=== PATIENT | male | born 1935 | race Caucasian/White ===

== ENCOUNTER 2017-12-22 13:45 | Outpatient (CLI) | payer MEDICARE, OTHER ==
[2017-12-22] MEDS ORDERED: GADOBUTROL 7.5 MMOL/7.5 ML VIAL IVP ONE (17:19)
[2017-12-22] MEDS ORDERED: GADOBUTROL 7.5 MMOL/7.5 ML VIAL ONE (18:30)
--- NOTE | 2017-12-23 12:42 | MRI Report ---
EXAM: MR ABDOMEN WITH AND WITHOUT CONTRAST (MR PANCREAS AND MRCP) EXAM DATE: 12/22/2017 05:54 PM. CLINICAL HISTORY: Pancreatic cancer. History of prior pancreatic cancer with Whipple surgery. COMPARISON: None. TECHNIQUE: Multiplanar breath-hold T1, T2, and DWI sequences obtained through the pancreas and abdome n on an MR scanner. Dedicated MRCP sequences obtained through the biliary and pancreatic ducts. Imag es obtained before and after administration of 6 mL Gadavist intravenous contrast. Multiphase postcon trast sequences obtained through the pancreas. FINDINGS: Per MR technologist there are multiple scan restarts and repeats due to difficulty in cooperation wit h both movement and breathing. Therefore, the entire scan is limited in detail. Lung Bases: Included portions of the lung bases are clear. Heart size upper normal. Liver: Signal intensity of the liver is unremarkable. No hypervascular lesions identified. No other h epatic lesions are seen noting that some of the postcontrast images are somewhat limited due to motio n. Patent portal vein. No significant intrahepatic ductal dilatation. CBD: The common bile duct in its entirety is not optimally visualized although it does not appear dil ated and may measure between 4-5 mm. Gallbladder: Gallbladder is absent. Pancreas: Portions of the pancreas are absent in particular pancreatic head which would coincide with the patient's history of pancreatic surgery. The remaining portions of the body and tail of pancreas are atrophic. Pancreatic duct well visualized measures up to 2 mm. No peripancreatic edema. No disti nct evidence for peripancreatic adenopathy. Spleen: The spleen appears normal. Kidneys and Adrenals: Kidneys are of normal signal intensity. Along the anterior midpole is a right r enal 6 mm T2 hyperintense and T1 hypointense lesion and also along the upper pole measuring 11 mm. No hydronephrosis. Adrenal glands appear normal. Bowel: Stomach is mildly distended and unremarkable. Postsurgical changes are seen involving the duod enum and distal stomach. Small bowel is unremarkable. The ascending colon is present extending medial ly overlying the anterior aspect of the IVC towards the right upper quadrant. Small to moderate volum e of stool is seen in the colon. No enlarged retroperitoneal or mesenteric lymph nodes. No upper abdo ankita enlarged lymph nodes are identified. Retroperitoneum: Abdominal aorta and IVC are normal in caliber. SMA, celiac and FELISA are patent. Renal arteries are patent. No aneurysm. Degenerative change in lower thoracic and lumbar spine. Thoracolumbar scoliosis. Calle catheter is present in urinary bladder which is mildly distended. IMPRESSION: 1. Detail limited due to motion and breathing artifact. 2. Postsurgical changes as per provided clinical history from Whipple surgery. 2. No hepatic lesions. 3. No evidence for upper abdominal, peripancreatic or gastrohepatic adenopathy. 4. Atrophic body and tail of the pancreas. No peripancreatic fluid collections. No peripancreatic sof t tissue nodules. 5. Right renal cysts. 6. Mildly distended urinary bladder containing a Calle catheter. [facility] Referring Provider Line: [phone] SITE ID: [id number]
== END 2017-12-22 13:46 | disposition home or self-care (01) ==
LOC: DI 13:45
PROVIDERS: ATTEND Internal Medicine Hematology & Oncology
DX: C25.9 Malignant neoplasm of pancreas, unspecified (principal); Q61.02 Congenital multiple renal cysts; N32.89 Other specified disorders of bladder
CPT/HCPCS: 74183

== ENCOUNTER 2017-12-27 09:53 | Emergency (ER) | payer MEDICARE, OTHER ==
[2017-12-27 10:14] VITALS: BP 147/54
--- NOTE | 2017-12-27 10:50 | ED Physician Documentation ---
History of Present Illness - Stated complaint Stated Complaint: CATH REMOVAL - Chief complaint Chief Complaint: General - Additonal information Additional information: hx from pt 82 male by his report had a cath placed for UTI and enlarged prostate about a week ago was seen in follow up Tuesday but the urologist did not want the catheter removed and he was supposed to go in Tuesday for removal but had other appts to attend then was supposed to go in today for removal but he was up all night with urine leaking around the catheter, urinary spasms and then diarrhea so he finally fell asleep about 4 and slept though his appt so come to ED for removal Review of Systems Constitutional: denies: Fever, Chills : reports: Dysuria PD PAST MEDICAL HISTORY - Past Medical History Cardiovascular: Hypertension Respiratory: None Neuro: None Endocrine/Autoimmune: None GI: C.difficile, Diverticulitis, Ulcerative colitis : Other HEENT: Chronic hearing loss Psych: Depression, Anxiety Musculoskeletal: Osteoarthritis Derm: None - Present Medications Home Medications: Ambulatory Orders Medication Instructions Recorded Confirmed Aspirin [Adult Low Dose Aspirin EC] 162 mg PO DAILY 12/05/17 12/27/17 Cholestyramine [Questran] 4 gm PO DAILY PRN 12/05/17 12/27/17 Finasteride [Proscar] 5 mg PO DAILY 12/05/17 12/27/17 Lactobacillus Rhamnosus GG 1 cap PO DAILY 12/05/17 12/27/17 [Culturelle] Lipase/Protease/Amylase [Creon Dr 1 cap PO TIDWM 12/05/17 12/27/17 24,000 Units Capsule] Lisinopril 15 mg PO DAILY 12/05/17 12/27/17 Magnesium 300 mg PO DAILY 12/05/17 12/27/17 Meclizine HCl 25 mg PO BID PRN 12/05/17 12/27/17 Mesalamine [Delzicol] 800 mg PO BID 12/05/17 12/27/17 Multivitamin [Multivitamins] 1 cap PO DAILY 12/05/17 12/27/17 [place]-3/Dha/Epa/Fish Oil [[place] 3 1 cap PO DAILY 12/05/17 12/27/17 500 Softgel] Pantoprazole [Protonix] 40 mg PO QDAC 12/05/17 12/27/17 Tamsulosin [Flomax] 0.4 mg PO DAILY 12/05/17 12/27/17 Trazodone HCl 25 - 50 mg PO QPM 12/05/17 12/27/17 Capecitabine [Xeloda] 1,500 mg PO BID 12/27/17 12/27/17 Loperamide [Imodium] 2 mg PO QID PRN 12/27/17 12/27/17 Oxybutynin [Ditropan] 5 mg PO TID PRN 12/27/17 12/27/17 Prochlorperazine [Compazine] 5 mg PO Q6H PRN 12/27/17 12/27/17 Vitamin B Complex 1 each PO DAILY 12/27/17 12/27/17 - Allergies Allergies/Adverse Reactions: Allergies Allergy/AdvReac Type Severity Reaction Status Date / Time ondansetron Allergy Unknown Verified 12/27/17 10:02 [From Zofran (as hydrochloride)] PD ED PE NORMAL - Vitals Vital signs reviewed: Yes - Cardiac Cardiac: RRR - Respiratory Respiratory: No respiratory distress, Clear bilaterally - Abdomen Abdomen: Soft, Non tender - Free text exam Free text exam: clear dark suarez urine in bag Results - Vitals Vitals: Vital Signs - 24 hr 12/27/17 09:55 Temperature 36.7 C Heart Rate 69 Respiratory 17 Rate Blood Pressure 147/54 H O2 Saturation 99 Oxygen O2 Source Room air PD MEDICAL DECISION MAKING - ED course ED course: mccain removed, pt able to void, post void scan <40 Departure - Departure Disposition: 01 Home, Self Care Clinical Impression: Encounter for Mccain catheter removal Condition: Good Comments: If you have more diarrhea you should collect a sample and have your PMD order a test to rule of c-diff which you have had before
== END 2017-12-27 11:51 | disposition home or self-care (01) ==
LOC: ED 09:53
DX: Z46.89 Encounter for fitting and adjustment of other specified devices (principal); I10 Essential (primary) hypertension; N40.0 Benign prostatic hyperplasia without lower urinary tract symptoms; M19.90 Unspecified osteoarthritis, unspecified site; Z87.19 Personal history of other diseases of the digestive system; Z79.82 Long term (current) use of aspirin
CPT/HCPCS: 51798; 99282

== ENCOUNTER 2018-01-02 09:42 | Emergency (ER) | payer MEDICARE, OTHER ==
--- NOTE | 2018-01-02 10:35 | ED Physician Documentation ---
History of Present Illness - Stated complaint Stated Complaint: ABD PX/DIARRHEA - Chief complaint Chief Complaint: Abd Pain - Treatment prior to arrival Treatment prior to arrival: hx from pt 82 male being txed for pancreatic cancer had C diff twice recent;y then he had UTI witg retention, had mccain placved i saw him 12/27 for mccain removal then seen 12/31 at [facility] for abd pain and had an extensive work up and was dced with keflex for UTI on the way home he at [facility] and after that he developed diarrhea again so his oncologist sent him to the ER to have a c diff sample collected pt states his ab pain is better no fever NV has not started the keflex yet Review of Systems Constitutional: denies: Fever GI: reports: Diarrhea (green - no blood). denies: Abdominal Pain, Nausea, Vomiting Endocrine: denies: Easy bruising / bleeding Immunocompromised: denies: Immunocompromised PD PAST MEDICAL HISTORY - Past Medical History Past Medical History: Yes Cardiovascular: Hypertension Respiratory: None Neuro: None Endocrine/Autoimmune: None GI: C.difficile, Diverticulitis, Ulcerative colitis : Other HEENT: Chronic hearing loss Psych: Depression, Anxiety Musculoskeletal: Osteoarthritis Derm: None - Past Surgical History Past Surgical History: Yes - Present Medications Home Medications: Ambulatory Orders Medication Instructions Recorded Confirmed Aspirin [Adult Low Dose Aspirin EC] 162 mg PO DAILY 12/05/17 01/02/18 Finasteride [Proscar] 5 mg PO DAILY 12/05/17 01/02/18 Lipase/Protease/Amylase [[place] 1 cap PO TIDWM 12/05/17 01/02/18 24,000 Units Capsule] Lisinopril 15 mg PO DAILY 12/05/17 01/02/18 Magnesium 300 mg PO DAILY 12/05/17 01/02/18 Meclizine HCl 25 mg PO BID PRN 12/05/17 01/02/18 Mesalamine [Delzicol] 800 mg PO BID 12/05/17 01/02/18 Multivitamin [Multivitamins] 1 cap PO DAILY 12/05/17 01/02/18 [place]-3/Dha/Epa/Fish Oil [[place] 3 1 cap PO DAILY 12/05/17 01/02/18 500 Softgel] Pantoprazole [Protonix] 40 mg PO QDAC 12/05/17 01/02/18 Tamsulosin [Flomax] 0.4 mg PO DAILY 12/05/17 01/02/18 Trazodone HCl 25 - 50 mg PO QPM 12/05/17 01/02/18 Loperamide [Imodium] 2 mg PO QID PRN 12/27/17 01/02/18 Megestrol Acetate 1 tbs PO BID 12/27/17 01/02/18 Vitamin B Complex 1 each PO DAILY 12/27/17 01/02/18 - Allergies Allergies/Adverse Reactions: Allergies Allergy/AdvReac Type Severity Reaction Status Date / Time ondansetron Allergy Unknown Verified 12/27/17 10:02 [From Zofran (as hydrochloride)] - Social History Does the pt smoke?: No Smoking Status: Never smoker Does the pt drink ETOH?: No Does the pt have substance abuse?: No - Immunizations Immunizations are current?: Yes PD ED PE NORMAL - Vitals Vital signs reviewed: Yes - General General: Other (thin) - Cardiac Cardiac: RRR - Respiratory Respiratory: No respiratory distress, Clear bilaterally - Abdomen Abdomen: Non tender - Derm Derm: Normal color - Neuro Neuro: Alert and oriented X 3 Results - Vitals Vitals: Vital Signs - 24 hr 01/02/18 01/02/18 09:48 12:18 Temperature 36.9 C 36.7 C Heart Rate 65 89 Respiratory 16 20 Rate Blood Pressure 143/67 H 146/69 H O2 Saturation 100 100 Oxygen O2 Source Room air - Labs Labs: Microbiology 01/02/18 10:30 Clostridium difficile (PCR) - Final Stool PD MEDICAL DECISION MAKING - ED course ED course: pt sent to ER to have a stool sample collected for c diff - long wait for lab results - 4 hr later c diff result is neg - pt with benign abd exam - already had extensive work up at [facility] 2 days ago - will dc and advise to take ab for UTI as rx by Prov Departure - Departure Disposition: Home, Self Care Clinical Impression: Diarrhea Qualifiers: Diarrhea type: unspecified type Qualified Code(s): R19.7 - Diarrhea, unspecified Condition: Good Follow-Up: Jese Armas MD [Primary Care Provider] - Surendra Fam MD [Physician No Access] - Comments: The C-diff test is negative today Continue the antibitoics as prescribed for the UTI And continue your probiotics. Follow up with your oncologist and/or PMD as needed
[2018-01-02 14:35] VITALS: BP 155/94
== END 2018-01-02 14:45 | disposition home or self-care (01) ==
LOC: ED 09:42
DX: R19.7 Diarrhea, unspecified (principal); C25.9 Malignant neoplasm of pancreas, unspecified; I10 Essential (primary) hypertension; Z79.82 Long term (current) use of aspirin
CPT/HCPCS: 87493; 99283

== ENCOUNTER 2018-01-17 13:14 | Outpatient (CLI) | payer MEDICARE, OTHER ==
--- NOTE | 2018-01-17 19:28 | CONSULTATION NOTE ---
Palliative Care Consultation - Referral Referring Provider: Dr. Surendra Fam Time of Visit: [id number] Referral setting: [facility] [place] Referral Reason: Pancreatic Cancer - Information Sources Records reviewed: Previous records reviewed History/Review of Systems obtained from: Patient Exam limitations: No limitations - History of Present Illness Brief History of Present Illness: This is an 82-year-old gentleman who was diagnosed with stage II (T3N0) pancreatic cancer of the head in December 2016. He did undergo a Whipple on 2016 at [facility], unfortunately had positive perineural invasion needing adjuvant chemotherapy. He did receive Xeloda and June 2017 with last dose 09/2017 with fairly severe toxicities. In the course of this he developed severe C. difficile, needing vancomycin two rounds, this added to his severe and rapid weight loss. He also had urinary retention secondary to BPH, with a Mccain catheter and recurrent UTIs. He has had this removed, reports he is doing okay at this time, no further retention symptoms. His most pressing symptom today, is his abdominal pain, he has had significant weight loss reports he weighs 130, at one point he was 220 at baseline. He does admit most likely he gets less than 1000 eladia a day, which is attributed to his stomach pain, and early satiety. He is quite frustrated understanding he needs to see the GI physician, and has been waiting 2 weeks for this appointment. He is having soft formed stools, his pain is not abdominal low cramping pain but upper epigastric pain between the sternal notch and the umbilicus. It is tender to touch, he has tries multiple different medications including Gaviscon, Pepto-Bismol, and antacid tablets. He does report he gets some relief with the PPI in the morning , though this only lasts for a few hours. He reports he is continued to have functional decline, as well as poor activity tolerance, and does appear somewhat frustrated and depressed. He does understand the seriousness of his illness and is awaiting clarification if a has progressive disease, and presents with high symptom burden.His CA 199 is elevated at 121, though his MRI is negative for metastasis. Medical/Surgical History - Past Medical History Cardiovascular: reports: Hypertension Respiratory: reports: None Neuro: reports: None Endocrine/Autoimmune: reports: None GI: reports: C.difficile, Diverticulitis, Ulcerative colitis : reports: Benign prostate hypertrophy, Other (mccain catheter removed;) HEENT: reports: Chronic hearing loss Psych: reports: Depression, Anxiety Musculoskeletal: reports: Osteoarthritis Derm: reports: None MRSA Hx?: No - Substance History Use: Uses substance without health or social issues: NONE Social History - Living Situation Living arrangement: At home Living Situation: With spouse/s.o. (He lives with his chris, they have been 37 years. They have a son in [place] and a son in [place]. He came to [facility] in [place], worked in the [employer]. He is retired in .) Family History - Family History Family History: Mother: , CVA/TIA, Father: , Cancer (;sister of colon cancer; another sister had brain c), Sister: Medications/Allergies - Medications Home Medications: Ambulatory Orders Medication Instructions Recorded Confirmed Aspirin [Adult Low Dose Aspirin EC] 100 mg PO DAILY 12/05/17 01/19/18 Finasteride [Proscar] 5 mg PO DAILY 12/05/17 01/19/18 Lipase/Protease/Amylase [Creon Dr 1 cap PO TIDWM 12/05/17 01/19/18 24,000 Units Capsule] Lisinopril 15 mg PO BID 12/05/17 01/19/18 Magnesium 250 mg PO DAILY 12/05/17 01/19/18 Mesalamine [Delzicol] 800 mg PO BID 12/05/17 01/19/18 Multivitamin [Multivitamins] 1 cap PO DAILY 12/05/17 01/19/18 [place]-3/Dha/Epa/Fish Oil [[place] 3 1 cap PO DAILY 12/05/17 01/19/18 500 Softgel] Pantoprazole [Protonix] 40 mg PO QDAC 12/05/17 01/19/18 Tamsulosin [Flomax] 0.4 mg PO DAILY 12/05/17 01/19/18 Loperamide [Imodium] 2 mg PO QID PRN 12/27/17 01/19/18 Megestrol Acetate 1 tbs PO BID 12/27/17 01/19/18 Lactobacillus Rhamnosus GG 1 cap PO DAILY 01/19/18 01/19/18 [Culturelle] Saccharomyces Boulardii [Florastor] 250 mg PO BID 01/19/18 01/19/18 - Allergies Allergies/Adverse Reactions: Allergies Allergy/AdvReac Type Severity Reaction Status Date / Time ondansetron Allergy Unknown Verified 12/27/17 10:02 [From Zofran (as hydrochloride)] Review of Systems - Constitutional Constitutional: reports: Fatigue, Weakness, Weight loss (130). denies: Fever, Chills - Ears, Nose & Throat Ears, Nose & Throat: reports: Hearing loss, Dry mouth - Cardiovascular Cardiovascular: reports: Decr. exercise tolerance. denies: Chest pain, Edema - Respiratory Respiratory: reports: SOB with exertion - Gastrointestinal Gastrointestinal: reports: Nausea, Reflux/heartburn, Poor appetite, Early satiety. denies: Diarrhea - Genitourinary Genitourinary: reports: Frequency - Musculoskeletal Musculoskeletal: reports: Muscle aches, Stiffness, Muscle weakness, Assistive devices (using walker) - Integumentary Integumentary: reports: Other (pressure sore) - Neurological Neurological: reports: General weakness - Psychiatric Psychiatric: reports: Depression, Anxiety - Endocrine Endocrine: reports: Intolerance to cold - Hematologic/Lymphatic Hematologic/Lymphatic: reports: Recurrent infections (recent treatment for infection) - All Other Systems All Other Systems: reports: Reviewed and negative Physical Exam - Vital Signs Pulse Rate: 53 Respiratory Rate: 18 O2 Saturation: 99 (ra @rest) Blood Pressure: 129/78 - Physical Exam General Appearance: positive: Mild distress Eyes Bilateral: positive: Normal inspection ENT: positive: Dry mucous membranes Neck: positive: Trachea midline, Stiff neck Cardiovascular: positive: Regular rate & rhythm Respiratory: positive: Breath sounds nml Abdomen: positive: Soft, Nml bowel sounds, Tenderness (mostly located above umbilicus on palpation) Skin: positive: Pressure wound (Stage II decub 0.5 cm on coccyx; reddened area over coccyx/sacrum) Extremities: positive: No pedal edema, Other (difficulty getting sitting to standing; amb with walker; shuffled walk) Neurologic/Psychiatric: positive: Oriented x3, Weakness, Depressed mood/affect Comments/Other: Patient with multiple layers of sweaters and coat on, appears quite thin and cachectic. Palliative Care - POLST Patient has POLST: Yes POLST Status: DNR (Patient reports has filled out JULIANN ST, and has done advanced directives. Unfortunately these are not on file that I can locate.), Selective Treatment Pain: Pain worsening, Location ("stomach pain" located between sternal notch and umbilicus. Does get severe enough needs morphine, 1/2 tab of 15 mg tab with refief when gavison etc. not effective.) Tiredness/Fatigue: Severe (7-10) Drowsiness/Sedation: Mild (1-3) Nausea: Mild (1-3) (Patient distressed with the word nausea, did discuss given patient's description would confirm he does have nausea though he does not feel like he is going to throw up he has a low-grade discomfort and feeling of ill health fairly consistently.) Depression: Moderate (4-6) Anxiety: Moderate (4-6) Dyspnea: Mild (1-3) Anorexia: Severe (7-10), Weight loss Sleep: Variable sleep pattern Constipation: No Feelings of wellbeing/Perceived Quality of Life: Poor, Worsening Performance Status: Patient has had ongoing functional decline, reports increased weakness. Has starting use a walker this last week, has not had any falls but does feel his balance is off. He is able to remain mostly independent, though his does assist with some ADLs. I would put him at a PPS of 50% - Palliative Care Discussion: Fairly lengthy discussion and trying to tease out patient's goals. Patient does recognize the seriousness of his illness, is concerned as far as progressive disease. He is quite clear at this point in time he would not except for the chemotherapy and/or radiation. He reports he has lived a good life, he does not want to extend his suffering, he feels he is right with the Lord. Patient does report he has a JULIANN ST and his advanced directives in place. Am unable to locate these at this point in time. In contrast to this he is hopeful that he is able to resolve this severe abdominal pain and discomfort, he is quite frustrated with the system overall and multiple delays and accessing care and information. He has had multiple emergency visits, regarding acute symptoms. He is hoping the GI doc will be able to assist him with his most prominent symptom which is concerning for his GI pain, and bowel health.He would like to focus on quality of life and improving his overall health if he does not have progressive disease.He is accepting of palliative care support that end-of-life would like to have a at home, his is supportive of this choice. She herself has taken care of her mom at end of life. Impression and Recommendations - Palliative Care Impression: This is an 82-year-old gentleman who presents with high symptom burden, GI distress, and functional decline. He does have pancreatic stage II cancer, with perineal invasion. Awaiting follow-up with GI specialist to address severe abdominal pain, has had significant weight loss, fatigue, presents with depressive symptoms, and severe frustration. Palliative care to provide support with the focus on quality of life, and continue to address goals of care. Recommendations/Counseling Done: 1. Anorexia. Patient has initiated Megace, he does feel some improvement, though he is getting less and his caloric needs. He has tried multiple different strategies, his most limiting factor is his abdominal pain. Reviewed and reinforced strategies provided by multiple clinical providers as well as dietitian, did encourage him to increase his Ensure intake as he is not able to meet his caloric needs. We did discuss in the context of fluids and his high risk for dehydration, best to focus on calorie laden fluids. 2. Hypertension. Patient is taking lisinopril 5 mg 3 tabs twice daily. He does titrate this somewhat accordingly. We did discuss this more important for him to be on the higher side, he is at high risk for falls, and with dehydration need to focus on keeping his blood pressure closer to the 120-140 range. Patient did acknowledge understanding. 3. GI pain. Does sound suspicious as far as possible ulcer, and or disease. Did provide prescription MS 15 mg immediate release with instruction to use this more frequently given the level and severity of his pain. He has found this effective. Will follow-up if patient is not seeing GI in the next couple weeks, may benefit from a trial of doubled PPI and Carafate. Will initiate after GI appointment set. 4. Depressive symptoms. Patient most likely would benefit from antidepressant , though will await resolution of his frustration with GI follow-up. Did normalize his feelings of grief and loss through counseling. 5. Advanced care planning. Patient quite clear on his goals at this point in time if had recurrent or progressive disease would not pursue further treatment , this decision is made in the context not only of his own experiences but experiences with family members. Counseling regarding the continuum of care including the role of palliative care and hospice. Will follow up and confirm his advanced directives are available in the system with next visit. Time Spent: Time spent 75 minutes with good 50% of this done in counseling eliciting goals of care reviewing symptom management and anticipatory guidance
== END 2018-01-17 13:15 | disposition home or self-care (01) ==
LOC: PC 13:14
PROVIDERS: ATTEND Nurse Practitioner Adult Health
DX: Z51.5 Encounter for palliative care (principal); R63.0 Anorexia; I10 Essential (primary) hypertension; R10.9 Unspecified abdominal pain; F32.9 Major depressive disorder, single episode, unspecified; C25.0 Malignant neoplasm of head of pancreas; F41.9 Anxiety disorder, unspecified; Z79.82 Long term (current) use of aspirin; M62.81 Muscle weakness (generalized); Z66 Do not resuscitate
CPT/HCPCS: 99205

== ENCOUNTER 2018-01-21 15:54 | Emergency (ER) | payer MEDICARE, OTHER ==
[2018-01-21 16:33] LABS: BILIRUBIN,URINE NEGATIVE (NEGATIVE); GLUCOSE, URINE (UA) NEGATIVE (NEGATIVE); KETONES,URINE (UA) NEGATIVE (NEGATIVE); LEUKOCYTE ESTERASE, URINE LARGE (NEGATIVE); NITRITE,URINE NEGATIVE (NEGATIVE); OCCULT BLOOD,URINE TRACE-INTA (NEGATIVE); PROTEIN,URINE NEGATIVE (NEGATIVE); UROBILINOGEN,URINE 0.2 (NORMAL) E.U./dL (NORMAL)
[2018-01-21 16:34] LABS: CLARITY,URINE CLOUDY (CLEAR)
[2018-01-21 16:48] LABS: BACTERIA,URINE Few /HPF (None Seen); CRYSTALS,URINE 3-5 Calcium Oxalate /LPF; RBC,URINE TNTC /HPF (0-5); SQUAMOUS EPITHELIAL CELL,UR NONE SEEN (<= Few)
[2018-01-21] MEDS ORDERED: cefTRIAXone 1 GM VIAL IM STA (17:11)
[2018-01-21] MEDS ORDERED: LIDOCAINE 1% 2 ML VIAL SUBQ ONE (17:11)
--- NOTE | 2018-01-21 17:14 | ED Physician Documentation ---
PD HPI MALE - Stated complaint Stated Complaint: MALE - Chief complaint Chief Complaint: Abd Pain - History obtained from History obtained from: Patient - History of Present Illness Timing - onset: How many days ago (2) Timing - duration: Days (2) Timing - details: Gradual onset Pain level max: 0 Pain level now: 0 Associated symptoms: Dysuria, Other (states foreskin is swollen.). No: Hematuria, Discharge, Testiclar pain, Scrotal swelling, Abdominal pain Similar symptoms before: Diagnosis (UTI) Recently seen: Not recently seen - Additional information Additional information: States similar to prior UTIs Review of Systems Constitutional: denies: Fever, Chills Respiratory: denies: Cough GI: denies: Vomiting, Diarrhea, Hematemesis : reports: Dysuria, Frequency, Hesitancy Skin: denies: Rash PD PAST MEDICAL HISTORY - Past Medical History Cardiovascular: Hypertension Respiratory: None Neuro: None Endocrine/Autoimmune: None GI: C.difficile, Diverticulitis, Ulcerative colitis : Benign prostate hypertrophy, Other (mccain catheter removed;) HEENT: Chronic hearing loss Psych: Depression, Anxiety Musculoskeletal: Osteoarthritis Derm: None - Past Surgical History Past Surgical History: Yes - Present Medications Home Medications: Ambulatory Orders Medication Instructions Recorded Confirmed Aspirin [Adult Low Dose Aspirin EC] 100 mg PO DAILY 12/05/17 01/19/18 Finasteride [Proscar] 5 mg PO DAILY 12/05/17 01/19/18 Lipase/Protease/Amylase [Creon Dr 1 cap PO TIDWM 12/05/17 01/19/18 24,000 Units Capsule] Lisinopril 15 mg PO BID 12/05/17 01/19/18 Magnesium 250 mg PO DAILY 12/05/17 01/19/18 Mesalamine [Delzicol] 800 mg PO BID 12/05/17 01/19/18 Multivitamin [Multivitamins] 1 cap PO DAILY 12/05/17 01/19/18 [place]-3/Dha/Epa/Fish Oil [[place] 3 1 cap PO DAILY 12/05/17 01/19/18 500 Softgel] Pantoprazole [Protonix] 40 mg PO QDAC 12/05/17 01/19/18 Tamsulosin [Flomax] 0.4 mg PO DAILY 12/05/17 01/19/18 Loperamide [Imodium] 2 mg PO QID PRN 12/27/17 01/19/18 Megestrol Acetate 1 tbs PO BID 12/27/17 01/19/18 Lactobacillus Rhamnosus GG 1 cap PO DAILY 01/19/18 01/19/18 [Culturelle] Saccharomyces Boulardii [Florastor] 250 mg PO BID 01/19/18 01/19/18 Cephalexin [Keflex] 500 mg PO Q6H #28 capsule 01/21/18 - Allergies Allergies/Adverse Reactions: Allergies Allergy/AdvReac Type Severity Reaction Status Date / Time ondansetron Allergy Unknown Verified 12/27/17 10:02 [From Zofran (as hydrochloride)] - Social History Does the pt smoke?: No Smoking Status: Never smoker Does the pt drink ETOH?: No Does the pt have substance abuse?: No - Immunizations Immunizations are current?: Yes - POLST Patient has POLST: Yes PD ED PE NORMAL - Vitals Vital signs reviewed: Yes - General General: Alert and oriented X 3, No acute distress - HEENT HEENT: Moist mucous membranes - Cardiac Cardiac: RRR - Respiratory Respiratory: No respiratory distress, Clear bilaterally - Abdomen Abdomen: Soft, Non tender, Non distended - Male Male : Other (Normal external genital exam, foreskin retracts and replaces easily. No infection) - Back Back: No CVA TTP - Derm Derm: Warm and dry - Neuro Neuro: Alert and oriented X 3 Results - Vitals Vitals: Vital Signs - 24 hr 01/21/18 01/21/18 16:07 18:05 Temperature 37.6 C H 37.1 C Heart Rate 59 L 59 L Respiratory 18 16 Rate Blood Pressure 144/65 H 113/58 L O2 Saturation 99 100 Oxygen O2 Source Room air - Labs Labs: Laboratory Tests 01/21/18 16:15 Urine Color YELLOW Urine Clarity CLOUDY Urine pH 6.0 Ur Specific [place] 1.015 Urine Protein NEGATIVE Urine Glucose (UA) NEGATIVE Urine Ketones NEGATIVE Urine Occult Blood TRACE-INTA Urine Nitrite NEGATIVE Urine Bilirubin NEGATIVE Urine Urobilinogen 0.2 (NORMAL) Ur Leukocyte Esterase LARGE H Urine RBC TNTC H Urine WBC >25 H Ur Squamous Epith Cells NONE SEEN Urine Crystals 3-5 Calcium Oxalate Urine Bacteria Few Ur Microscopic Review INDICATED Urine Culture Comments INDICATED PD MEDICAL DECISION MAKING - ED course Complexity details: reviewed results, re-evaluated patient, considered differential, d/w patient, d/w family ED course: Patient is an 82-year-old male with what appears to be a UTI. Given Rocephin and will place on antibiotics for home. He is well-appearing, nontoxic. Afebrile. No evidence of pyelonephritis or sepsis. Patient counseled regarding signs and symptoms for which I believe and urgent re-evaluation would be necessary. Patient with good understanding of and agreement to plan and is comfortable going home at this time This document was made in part using voice recognition software. While efforts are made to proofread this document, sound alike and grammatical errors may occur. Departure - Departure Disposition: Home, Self Care Clinical Impression: UTI (urinary tract infection) Qualifiers: Urinary tract infection type: acute cystitis Hematuria presence: without hematuria Qualified Code(s): N30.00 - Acute cystitis without hematuria Condition: Good Instructions: ED UTI Cystitis Male Follow-Up: your,doctor in 1 week [Other] Prescriptions: Cephalexin [Keflex] 500 mg PO Q6H #28 capsule Comments: Return if you worsen. Take all antibiotics until gone. Discharge Date/Time: 01/21/18 18:05
[2018-01-21 18:09] VITALS: BP 113/58
== END 2018-01-21 18:05 | disposition home or self-care (01) ==
LOC: ED 15:54
DX: N30.00 Acute cystitis without hematuria (principal); I10 Essential (primary) hypertension; N40.0 Benign prostatic hyperplasia without lower urinary tract symptoms; Z79.82 Long term (current) use of aspirin
CPT/HCPCS: 81001; 81003; 87077; 87086; 96372; 99283

== ENCOUNTER 2018-01-23 15:32 | Emergency (ER) | payer MEDICARE, OTHER ==
--- NOTE | 2018-01-23 18:35 | ED Physician Documentation ---
PD HPI NVD - Stated complaint Stated Complaint: DIARRHEA - Chief complaint Chief Complaint: Abd Pain - History obtained from History obtained from: Patient - History of Present Illness Timing - onset: How many days ago (2) Timing - duration: Days (2) Timing - details: Abrupt onset, Still present Associated symptoms: Abdominal pain (cramping intermittently). No: Fever Contributing factors: Recent antibiotics (started Keflex for likely UTI 2 days ago. Had onset of severe diarrhea soon after that.). No: Sick contact, Bad food , Travel Improved by: No: Eating Worsened by: Eating Similar symptoms before: Diagnosis (c.diff.) Recently seen: Emergency Dept (2 days ago for fatigue and Dx with UTi.) Review of Systems Constitutional: reports: Chills, Myalgias. denies: Fever Nose: denies: Rhinorrhea / runny nose, Congestion Throat: denies: Dental pain / toothache, Sore throat Cardiac: denies: Chest pain / pressure Respiratory: denies: Dyspnea, Cough GI: reports: Abdominal Pain. denies: Nausea, Diarrhea : denies: Dysuria, Frequency PD PAST MEDICAL HISTORY - Past Medical History Cardiovascular: Hypertension Respiratory: None Neuro: None Endocrine/Autoimmune: None GI: C.difficile, Diverticulitis, Ulcerative colitis : Benign prostate hypertrophy, Other (mccain catheter removed;) HEENT: Chronic hearing loss Psych: Depression, Anxiety Musculoskeletal: Osteoarthritis Derm: None - Past Surgical History Past Surgical History: Yes - Present Medications Home Medications: Ambulatory Orders Medication Instructions Recorded Confirmed Aspirin [Adult Low Dose Aspirin EC] 100 mg PO DAILY 12/05/17 01/23/18 Finasteride [Proscar] 5 mg PO DAILY 12/05/17 01/23/18 Lipase/Protease/Amylase [Creon Dr 1 cap PO TIDWM 12/05/17 01/23/18 24,000 Units Capsule] Lisinopril 15 mg PO BID 12/05/17 01/23/18 Magnesium 250 mg PO DAILY 12/05/17 01/23/18 Mesalamine [Delzicol] 800 mg PO BID 12/05/17 01/23/18 Multivitamin [Multivitamins] 1 cap PO DAILY 12/05/17 01/23/18 [place]-3/Dha/Epa/Fish Oil [[place] 3 1 cap PO DAILY 12/05/17 01/23/18 500 Softgel] Pantoprazole [Protonix] 40 mg PO QDAC 12/05/17 01/23/18 Tamsulosin [Flomax] 0.4 mg PO DAILY 12/05/17 01/23/18 Loperamide [Imodium] 2 mg PO QID PRN 12/27/17 01/23/18 Megestrol Acetate 1 tbs PO BID 12/27/17 01/23/18 Lactobacillus Rhamnosus GG 1 cap PO DAILY 01/19/18 01/23/18 [Culturelle] Saccharomyces Boulardii [Florastor] 250 mg PO BID 01/19/18 01/23/18 Morphine ER [Ms Contin] 15 mg PO Q12H 01/23/18 01/23/18 Nitrofurantoin Monohyd/M-Cryst 100 mg PO BID #14 capsule 01/23/18 [Macrobid 100 mg Capsule] - Allergies Allergies/Adverse Reactions: Allergies Allergy/AdvReac Type Severity Reaction Status Date / Time cephalexin [From Keflex] Allergy Cramps Verified 01/23/18 16:02 ondansetron Allergy Unknown Verified 12/27/17 10:02 [From Zofran (as hydrochloride)] - Social History Does the pt smoke?: No Smoking Status: Never smoker Does the pt drink ETOH?: No Does the pt have substance abuse?: No - Immunizations Immunizations are current?: Yes - POLST Patient has POLST: Yes PD ED PE NORMAL - Vitals Vital signs reviewed: Yes - General General: Alert and oriented X 3, No acute distress, Well developed/nourished - HEENT HEENT: Moist mucous membranes, Pharynx benign - Neck Neck: Supple, no meningeal sign, No adenopathy - Cardiac Cardiac: RRR, No murmur - Respiratory Respiratory: No respiratory distress, Clear bilaterally - Abdomen Abdomen: Normal bowel sounds, Soft, Non tender, Non distended, No organomegaly - Back Back: No CVA TTP - Derm Derm: Normal color, Warm and dry Results - Vitals Vitals: Oxygen O2 Source Room air - Labs Labs: Microbiology 01/23/18 18:48 Urine Culture - Final Urine,Clean Catch No growth Laboratory Tests 01/23/18 18:48 Urine Color YELLOW Urine Clarity CLEAR Urine pH 6.5 Ur Specific [place] 1.010 Urine Protein NEGATIVE Urine Glucose (UA) NEGATIVE Urine Ketones NEGATIVE Urine Occult Blood NEGATIVE Urine Nitrite NEGATIVE Urine Bilirubin NEGATIVE Urine Urobilinogen 0.2 (NORMAL) Ur Leukocyte Esterase MODERATE H Urine RBC 0-5 Urine WBC 11-25 H Urine WBC Clumps PRESENT Ur Squamous Epith Cells NONE SEEN Urine Bacteria None Seen Ur Microscopic Review INDICATED Urine Culture Comments INDICATED PD MEDICAL DECISION MAKING - ED course Complexity details: reviewed results (his urine culture was not resulted yet, but can change from Keflex to Macrobid to have less GI effects. He can bring back stool sample for testing. ), considered differential (he of course did not have to have BM here, so sent with stool collection stuff. ), d/w patient Departure - Departure Disposition: Home, Self Care Clinical Impression: Antibiotic-associated diarrhea UTI (urinary tract infection) Qualifiers: Urinary tract infection type: acute cystitis Hematuria presence: with hematuria Qualified Code(s): N30.01 - Acute cystitis with hematuria Condition: Stable Record reviewed to determine appropriate education?: Yes Instructions: ED Diet Vomiting Diarrhea Follow-Up: Jese Armas MD [Primary Care Provider] - Prescriptions: Nitrofurantoin Monohyd/M-Cryst [Macrobid 100 mg Capsule] 100 mg PO BID #14 capsule Comments: Stop the cephalexin. We will switch you to nitrofurantoin which has a very low incidence of gastrointestinal side effects. This should be adequate for your bladder infection. The culture on the urine from Tuesday is not resulted yet so I cannot verify that this will cover it. The results should be available probably later tomorrow and will call you if we need to amend the antibiotic. Continue the Imodium if needed for diarrhea. Continue the probiotics you are taking. If you persist with diarrhea beyond a day or 2 with this change, then bring a stool sample to your primary care or here to the hospital to have it checked for C. difficile. Discharge Date/Time: 01/23/18 19:14
[2018-01-23] MEDS ORDERED: LOPERAMIDE 2 MG CAPSULE PO STA (18:51)
[2018-01-23] MEDS ORDERED: NITROFURANTOIN MACRO 100 MG CAPSULE PO STA (18:52)
[2018-01-23 18:53] LABS: BILIRUBIN,URINE NEGATIVE (NEGATIVE); GLUCOSE, URINE (UA) NEGATIVE (NEGATIVE); KETONES,URINE (UA) NEGATIVE (NEGATIVE); LEUKOCYTE ESTERASE, URINE MODERATE (NEGATIVE); NITRITE,URINE NEGATIVE (NEGATIVE); OCCULT BLOOD,URINE NEGATIVE (NEGATIVE); PH,URINE 6.5 PH (5.0-7.5); PROTEIN,URINE NEGATIVE (NEGATIVE); UROBILINOGEN,URINE 0.2 (NORMAL) E.U./dL (NORMAL)
[2018-01-23 18:54] LABS: CLARITY,URINE CLEAR (CLEAR)
[2018-01-23 19:00] LABS: WBC CLUMPS,URINE PRESENT
[2018-01-23 19:01] LABS: BACTERIA,URINE None Seen /HPF (None Seen); RBC,URINE 0-5 /HPF (0-5); SQUAMOUS EPITHELIAL CELL,UR NONE SEEN (<= Few)
[2018-01-23 19:14] VITALS: BP 146/61
== END 2018-01-23 19:14 | disposition home or self-care (01) ==
LOC: ED 15:32
DX: K52.1 Toxic gastroenteritis and colitis (principal); T36.1X5A Adverse effect of cephalosporins and other beta-lactam antibiotics, initial encounter; N30.01 Acute cystitis with hematuria; I10 Essential (primary) hypertension; Z79.82 Long term (current) use of aspirin
CPT/HCPCS: 81001; 87086; 99283; A9270; 81003

== ENCOUNTER 2018-02-24 12:56 | Outpatient (CLI) | payer MEDICARE, OTHER ==
--- NOTE | 2018-02-24 17:15 | CONSULTATION NOTE ---
Palliative Care Follow Up - Referral Referring Provider: Dr. Surendra Fam Time of Visit: [phone] Referral setting: [facility] [place] Referral Reason: Pancreatic Cancer/Goals of Care - Information Sources Records reviewed: RN notes reviewed, Previous records reviewed History/Review of Systems obtained from: Patient ( Rere present), Family ( W) Exam limitations: Clinical condition (patient difficulty tracking details) - History of Present Illness Update Brief HPI Update: This is an 82-year-old gentleman who is diagnosed with stage II pancreatic cancer at the head of the pancreas since 12/2016. He did receive a Whipple surgery [id number] at [facility], though is positive for perineural invasion. He did have single agent Xeloda, with severe side effects, including C. difficile. He continues to be quite frail, has severe anorexia, now presents with lower extremity edema, and severe abdominal pain. Patient did have an endoscopy this last Tuesday with Dr. 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 Patient's understanding, for which he was quite distressed, is he was not to follow-up with Dr. Simeon Wang but Dr. Surendra Fam. He very much wants someone to address his severe abdominal pain. Patient is fairly inconsistent in his interpretation of the pain, reports it is painful on an empty stomach, but feels better when eating and then discusses that it hurts all the time that he eats. He has been on MS Contin 15 mg twice daily, does wear off after about 6 hours, he has been using morphine immediate release 7.5-15 mg about 4-5 times a day when the pain escalates. He is quite confused with the multiple medications he is taking, he has several probiotics, he takes Zahida, Miso, and attempt to address his past experiences C. difficile. He has not been have any further loose stools or signs or symptoms of recurrence. I had initiated Carafate, patient never did follow-through, and does not sound like he even picked it up. Have been awaiting the recommendations from the GI physician, patient is overwhelmed by his current medication schedule. And also how to navigate his current pathway through the medical system. Patient does not have an accurate list at this point in time, unclear exactly what patient is taking. The other presenting symptom, as he did call earlier this week reporting he has significant lower extremity edema, he was unable to come in at that point in time, I did start him on low-dose furosemide 20 mg daily, he is here today reports it is helping some, though the swelling is not much less. They are much more "movable in the morning". They are quite tight and go up to his mid knees area. His blood pressure though is 104/53 with a pulse of 55 even on low- dose furosemide. He denies dizziness. He is due to see his PCP Dr. Armas on Tuesday. We discussed him continue the furosemide through the weekend, and adjustments can be made at that visit or at our visit next Tuesday. Of note he has been taking miso, which has about 10,000 mg of sodium per cup, he has been asked to discontinue this. Social History - Living Situation Living arrangement: At home Living Situation: With spouse/s.o. (Patient and are somewhat isolated, reports patient is quite stubborn and somewhat focused and perseverative. She is quite supportive and worries about his current quality of life) Medications/Allergies - Medications Home Medications: Ambulatory Orders Medication Instructions Recorded Confirmed Aspirin [Adult Low Dose Aspirin EC] 100 mg PO DAILY 12/05/17 02/24/18 Finasteride [Proscar] 5 mg PO DAILY 12/05/17 02/24/18 Lipase/Protease/Amylase [[place] 1 cap PO TIDWM 12/05/17 02/24/18 24,000 Units Capsule] Lisinopril 15 mg PO BID 12/05/17 02/24/18 Magnesium 250 mg PO DAILY 12/05/17 02/24/18 Mesalamine [Delzicol] 800 mg PO BID 12/05/17 02/24/18 Multivitamin [Multivitamins] 1 cap PO DAILY 12/05/17 02/24/18 [place]-3/Dha/Epa/Fish Oil [[place] 3 1 cap PO DAILY 12/05/17 02/24/18 500 Softgel] Pantoprazole [Protonix] 40 mg PO QDAC 12/05/17 02/24/18 Tamsulosin [Flomax] 0.4 mg PO DAILY 12/05/17 02/24/18 Loperamide [Imodium] 2 mg PO QID PRN 12/27/17 02/24/18 Megestrol Acetate 1 tbs PO BID 12/27/17 02/24/18 Lactobacillus Rhamnosus GG 1 cap PO DAILY 01/19/18 02/24/18 [Culturelle] Saccharomyces Boulardii [Florastor] 250 mg PO BID 01/19/18 02/24/18 Morphine ER [Ms Contin] 15 mg PO Q8HR 01/23/18 02/24/18 Nitrofurantoin Monohyd/M-Cryst 100 mg PO BID #14 capsule 01/23/18 02/24/18 [Macrobid 100 mg Capsule] Phenobarb/Hyoscy/Atropine/Scop 1 tab PO Q12H 02/07/18 02/24/18 [ Tablet] - Allergies Allergies/Adverse Reactions: Allergies Allergy/AdvReac Type Severity Reaction Status Date / Time cephalexin [From Keflex] Allergy Cramps Verified 01/23/18 16:02 ondansetron Allergy Unknown Verified 12/27/17 10:02 [From Zofran (as hydrochloride)] Review of Systems - Constitutional Constitutional: reports: Fatigue, Weakness, Poor appetite, Weight loss (141 but edematous). denies: Fever, Chills - Eyes Eyes: reports: Vision loss - Ears, Nose & Throat Ears, Nose & Throat: reports: Hearing loss, Dry mouth - Cardiovascular Cardiovascular: reports: Decr. exercise tolerance. denies: Chest pain - Respiratory Respiratory: reports: SOB with exertion - Gastrointestinal Gastrointestinal: reports: Abdominal pain, Abdominal distention, Constipation ( bowels move every 2-3 days), Nausea, Reflux/heartburn, Bloating, Poor appetite, Early satiety - Genitourinary Genitourinary: reports: Frequency, Urgency - Musculoskeletal Musculoskeletal: reports: Muscle aches, Stiffness, Muscle weakness, Assistive devices (using 4WW) - Integumentary Integumentary: reports: Rash, Other (reports "bed sore" improved) - Neurological Neurological: reports: General weakness, Focal weakness, Memory problems ( feeling overwhelmed with multiple medicatons and appointments) - Psychiatric Psychiatric: reports: Depression, Anxiety - Hematologic/Lymphatic Hematologic/Lymphatic: reports: Anemia (mild), Recurrent infections (on prophalactic for recurrent UTIs) - All Other Systems All Other Systems: reports: Reviewed and negative Physical Exam - Vital Signs Pulse Rate: 55 Respiratory Rate: 18 Blood Pressure: 104/53 - Physical Exam General Appearance: positive: Mild distress Eyes Bilateral: positive: Normal inspection, No scleral icterus ENT: positive: Dry mucous membranes Neck: positive: No JVD, Trachea midline Cardiovascular: positive: Regular rate & rhythm Respiratory: positive: Diminished in bases. negative: Wheezes, Rales, Rhonchi Abdomen: positive: Soft, Nml bowel sounds, Tenderness. negative: Distended Skin: positive: Pallor, Pressure wound (coccyx) Extremities: positive: Pedal edema (taught LE pedal edema; skin thinned) Neurologic/Psychiatric: positive: Oriented x3, Weakness, Depressed mood/affect, Flat affect Palliative Care - POLST Patient has POLST: Yes POLST Status: DNR, Selective Treatment Pain: Pain worsening, Location (abdominal; worse/better with eating; coccyx tender with sitting) Tiredness/Fatigue: Moderate (4-6) Drowsiness/Sedation: Severe (7-10) Nausea: Moderate (4-6) Depression: Severe (7-10) Anxiety: Moderate (4-6) Dyspnea: Mild (1-3) Anorexia: Severe (7-10) Sleep: Sleeps poorly (up frequently to void) Constipation: Yes, Opoid induced, Managed Feelings of wellbeing/Perceived Quality of Life: Poor, Worsening Performance Status: Patient presents is very frail, difficulty from getting from sitting to standing , uses front wheeled walker at slow pace. Does need assistance with dressing, bathing, and has been most of his time in recliner. Functional status is diminishing, would put his palliative performance status at a 50% - Palliative Care Discussion: Patient presents as discouraged, with high symptom burden, and difficulty regarding managing his overall plan of care. He feels like there are multiple players And unclear how this is all to come together. Does appear to have difficulty understanding medication and medication adherence. confirms he is quite overwhelmed. Patient admits to very poor quality of life and ongoing concerns related to this.Patient does have a JULIANN ST in place which is a DNAR/ Limited additional interventions. Patient presents with symptoms of progressive disease, increasing Fahad difficult to control pain, and functional decline. Awaiting results of biopsies and recommendations from oncologist, patient may benefit from transition to hospice earlier than later. Impression and Recommendations - Palliative Care Impression: This is an 82-year-old gentleman who presents with high symptom burden, GI pain and distress, and ongoing functional decline. He has recently seen Dr. Barbie Somers, with endoscopy for biopsies. Patient would benefit from further follow-up , regarding recommendations for management of the aurelia pain and symptoms. Patient is overwhelmed, concerned about medication adherence, in need of increasing support. Palliative care to provide ongoing evaluation, symptom management support, until patient transitions to hospice. Recommendations/Counseling Done: 1. Acute on chronic abdominal pain. Patient attempting to use Creon with meals , though this is not consistent, and patient does not perceive any improvement with this. He has been on MS Contin 15 mg twice daily, with use of 7.5-15 immediate release as needed acute pain. It does appear he is using this 4-5 times a day, does get relief, but does get somewhat distressed with sedation. Counseling regarding increasing long-acting MS Contin to 15 mg 3 times daily, with the goal to decrease sedation with more time-released support, and hopefully decrease his need for immediate release. Instructed also to increase his bowel regimen, he cannot describe exactly what he is taking, has been asked to bring his meds in at next visit. Patient currently on pantoprazole, had not initiated the Carafate, nor appears picked it up. Has complex schedule regarding his omega-3's and probiotics. Encouraged given his current status with no symptoms of recurrent C. difficile. May be more of help to decrease his pill burden, and focus on fluids and nutrition. Will follow up regarding GI appointment, and recommendations regarding medications. 2. Anorexia. Patient has initiated Megace, though his intake remains poor, he feels like it does make him feel hungry. He is still unable to take adequate calories, maybe 1 Ensure 1-2 times a day. Has been asked to increase this, particularly in the evenings before bed. Remains at high risk for dehydration and ongoing decline. 3. Depressive symptoms. Patient most likely would benefit from antidepressant , though hesitant to add any more medications given unclear his medication adherence. Counseling to normalize his feelings of grief and loss, will help navigate some of his feelings of frustration as far as working with specialists. Will need to wait findings on biopsy, this may inform our next steps. 4. Lower extremity edema. Patient does have severe swelling 3+ edema up to his knees. Did benefit from low-dose furosemide, will continue through the weekend. Is to see PCP on Tuesday, if patient does not receive labs, will follow up mid week prior to her appointment. Instructed to stop Mizo for now given sodium content. 5. Stage II decub on coccyx. Reports is doing pressure relief measures, using barrier cream, and is improving. Will await final plan, may benefit from home health or hospice support. 6. Medication adherence patient with multiple medications, difficulty manage in them as far as timing, eating, and feeling overwhelmed. Instructed to bring all medications and at next appointment, and will work on strategy for management. 7. Advanced care planning. Patient does appear to continue to decline, with increased symptom burden, will await findings of biopsy and oncology review, but may consider given patient's goals of transition to hospice. Time Spent: 60 minutes with good 50% of this done in counseling regarding symptom management , medication management, anticipatory guidance, and coordination of care. I will reach out to both Dr. Lozano and Dr. Wang regarding recommendations for next steps, as well as GI follow-up
== END 2018-02-24 12:57 | disposition home or self-care (01) ==
LOC: PC 12:56
PROVIDERS: ATTEND Nurse Practitioner Adult Health
DX: Z51.5 Encounter for palliative care (principal); G89.29 Other chronic pain; R10.9 Unspecified abdominal pain; R63.0 Anorexia; R60.0 Localized edema; C25.0 Malignant neoplasm of head of pancreas; Z91.14 Patient's other noncompliance with medication regimen; Z79.82 Long term (current) use of aspirin; Z79.891 Long term (current) use of opiate analgesic; M62.81 Muscle weakness (generalized); Z66 Do not resuscitate
CPT/HCPCS: 99215

== ENCOUNTER 2018-03-01 13:48 | Outpatient (CLI) | payer MEDICARE, OTHER ==
[2018-03-01 14:24] LABS: ALBUMIN 3.4 g/dL (3.2-5.5); ALBUMIN/GLOBULIN RATIO 1.4 (1.0-2.2); BILIRUBIN,TOTAL 0.5 mg/dL (0.2-1.0); CALCIUM 8.1 mg/dL (8.5-10.3); CREATININE 0.4 mg/dL (0.6-1.2); TOTAL PROTEIN 5.9 g/dL (6.7-8.2)
== END 2018-03-01 13:49 | disposition home or self-care (01) ==
LOC: LAB 13:48
PROVIDERS: ATTEND Nurse Practitioner Adult Health
DX: Z79.899 Other long term (current) drug therapy (principal)
CPT/HCPCS: 36415; 80053

== ENCOUNTER 2018-03-01 14:06 | Outpatient (CLI) | payer MEDICARE, OTHER ==
--- NOTE | 2018-03-01 17:32 | CONSULTATION NOTE ---
Palliative Care Follow Up - Referral Referring Provider: Dr. Surendra Fam Time of Visit: [id number] Referral setting: [facility] [place] Referral Reason: Pancreatic Cancer/Abd Pain/Medication Adherence - Information Sources Records reviewed: Previous records reviewed History/Review of Systems obtained from: Patient, Family ( Rere at visit) Exam limitations: No limitations - History of Present Illness Update Brief HPI Update: This is an 82-year-old gentleman who is diagnosed with pancreatic stage II at the head of the pancreas since 12/2016. He did receive a Whipple surgery 03/2007 at [facility], though it was positive for perineural invasion. He had received single agent Xeloda, with severe side effects, and residual issues including C. difficile. He has had progressive and severe abdominal pain, inconsistent reporting of what exacerbates it, sometimes food, sometimes empty stomach, has been trying to figure out how best to take his myriad of pills, as well as improve his nutrition given the state of his discomfort. Patient did have endoscopy, and follow-up it was negative for metastatic disease , but positive for severe erythema, and Feliz's esophagus. He is scheduled to follow-up with Dr. Simeon Velasquez next week, But looking for ways to improve his abdominal pain and discomfort as well as manage all his medications today. His CA 199 antigen has been increasing on 12/22/17 it was 121 and on 02/06/2018 157. He is feeling somewhat confused regarding what to expect from his disease, and is scheduled for an MRI next Wednesday 03/07. He does appear quite frail, his cheeks are sunken, at baseline he is a gentleman but likes to have control. He does seem distressed in trying to manage his current condition. He has had some improvement, with less need for breakthrough pain medication of the morphine immediate release, with increasing his MS Contin to 15 mg 3 times daily. But the abdominal pain and burning has not subsided, though he did finally initiate the Carafate last night, and felt better after 1 dose. (I had ordered this several weeks ago pending GI work up, could not figure out how to take with all his other medications so did not). Social History - Living Situation Living arrangement: At home Living Situation: With spouse/s.o. (Rere His accompanies patient today, she is very supportive, but also defers to him and requests all directions go to him. She though does participate in listening and instructions, but commented he likes to do things his own way.) Medications/Allergies - Medications Home Medications: Ambulatory Orders Medication Instructions Recorded Confirmed Aspirin [Adult Low Dose Aspirin EC] 100 mg PO DAILY 12/05/17 03/01/18 Finasteride [Proscar] 5 mg PO DAILY 12/05/17 03/01/18 Lipase/Protease/Amylase [Moises Dr 1 cap PO TIDWM 12/05/17 03/01/18 24,000 Units Capsule] Lisinopril 15 mg PO BID 12/05/17 03/01/18 Magnesium 250 mg PO DAILY 12/05/17 03/01/18 Mesalamine [Delzicol] 800 mg PO BID 12/05/17 03/01/18 Multivitamin [Multivitamins] 1 cap PO DAILY 12/05/17 03/01/18 [place]-3/Dha/Epa/Fish Oil [[place] 3 1 cap PO DAILY 12/05/17 03/01/18 500 Softgel] Pantoprazole [Protonix] 40 mg PO BID 12/05/17 03/01/18 Tamsulosin [Flomax] 0.4 mg PO DAILY 12/05/17 03/01/18 Megestrol Acetate 1 tbs PO BID 12/27/17 03/01/18 Morphine ER [Ms Contin] 15 mg PO Q8HR 01/23/18 03/01/18 Phenobarb/Hyoscy/Atropine/Scop 1 tab PO ACHS 02/07/18 03/01/18 [ Tablet] Calcium Carb/Mag Hydrox/Simeth 1 tab PO Q4HR PRN 03/01/18 03/01/18 [Antacid Multi-Sym Tab Chew] Furosemide 20 mg PO .Q2 DAYS 03/01/18 03/01/18 Melatonin 3 mg PO ACHS 03/01/18 03/01/18 Morphine Sulfate 7.5 - 15 mg PO Q4HR PRN 03/01/18 03/01/18 Sucralfate [Carafate] 1 gm PO QID 03/01/18 03/01/18 - Allergies Allergies/Adverse Reactions: Allergies Allergy/AdvReac Type Severity Reaction Status Date / Time cephalexin [From Keflex] Allergy Cramps Verified 01/23/18 16:02 ondansetron Allergy Unknown Verified 12/27/17 10:02 [From Zofran (as hydrochloride)] Review of Systems - Constitutional Constitutional: reports: Fatigue, Weakness, Poor appetite, Weight loss. denies : Fever, Chills - Eyes Eyes: reports: Vision loss - Ears, Nose & Throat Ears, Nose & Throat: reports: Hearing loss (mild) - Cardiovascular Cardiovascular: reports: Edema, Exertional dyspnea, Decr. exercise tolerance - Respiratory Respiratory: reports: SOB with exertion. denies: Cough - Gastrointestinal Gastrointestinal: reports: Abdominal pain, Constipation (moves bowels about every 2 days), Nausea, Vomiting (starting to have some "burping" and regurgitation/no vomiting), Reflux/heartburn, Poor appetite, Early satiety - Genitourinary Genitourinary: reports: Frequency, Urgency - Musculoskeletal Musculoskeletal: reports: Stiffness, Limited range of motion, Muscle weakness, Assistive devices (uses rolling walker;) - Integumentary Integumentary: reports: Dryness, Other (rash back of legs; stage II decub improving) - Neurological Neurological: reports: General weakness, Dizziness, Memory problems - Psychiatric Psychiatric: reports: Depression, Anxiety - Endocrine Endocrine: reports: Intolerance to cold - Hematologic/Lymphatic Hematologic/Lymphatic: reports: Recurrent infections (history of UTIs/C. diff) - All Other Systems All Other Systems: reports: Reviewed and negative Physical Exam - Vital Signs Temperature: 98.1 C Pulse Rate: 55 Respiratory Rate: 18 Blood Pressure: 148/61 - Physical Exam General Appearance: positive: Mild distress, Anxious, Lethargic Eyes Bilateral: positive: Normal inspection ENT: negative: Oral lesions Neck: positive: No JVD, Trachea midline Cardiovascular: positive: Regular rate & rhythm Respiratory: positive: Diminished in bases Abdomen: positive: Soft, Nml bowel sounds Skin: positive: Pallor, Rash (rash appears candidiasis back of leg; using RX from PCP with good relief), Pressure wound (coccyx thinned and reddened; using Cavilon barrier cream as instructed with improvement) Extremities: positive: Pedal edema (taught LE edema up to knees; improved both by reports and exam) Neurologic/Psychiatric: positive: Oriented x3, Weakness, Depressed mood/affect, Flat affect, Other (very perseverative and suspect some OCD behaviors) Palliative Care - POLST Patient has POLST: Yes POLST Status: DNR, Selective Treatment Pain: Pain worsening, Location (abdominal; some improvement of baseline pain with increase MS contin 15 mg TID; noted abdominal buring pain/gas/distress) Tiredness/Fatigue: Severe (7-10) Drowsiness/Sedation: Severe (7-10) Nausea: Severe (7-10) (new regurgitation) Depression: Severe (7-10) Anxiety: Moderate (4-6) Dyspnea: None Anorexia: Moderate (4-6) Sleep: Variable sleep pattern (impacted by nighttime voiding) Constipation: Yes, Opoid induced, Managed Feelings of wellbeing/Perceived Quality of Life: Poor, Worsening Performance Status: Patient with some difficulty getting from sitting to standing, is ambulatory with his walker, does spend most of his time sleeping or sitting in the recliner. Does have temporal wasting as well as upper extremity and lower extremity wasting, it is deceptive as he has lower extremity edema but does have muscle wasting in his quads.PPS of 60% - Palliative Care Discussion: Patient expressing much frustration just over the multiple appointments, the time it takes to get some "answers". Is hoping to have some indication of his prognosis, treatment plan, and hoping for improvement in quality of life particularly around the pain. He does have his affairs in order, but is hoping for more quality and quantity of time. Results - Lab Results Lab results reviewed: Yes Lab and Imaging Results: labs today to follow up on initiation of diuretics/ NA 130; K 3.8; CA 8.1; TP 5.9; Alb 3.4 Impression and Recommendations - Palliative Care Impression: This is an 82-year-old gentleman with stage II pancreatic cancer, now with new diagnosis of Feliz's esophagus, and severe gastritis. He does present with severe abdominal pain, feeling overwhelmed and managing his medication and nutrition, and high symptom burden. Palliative care to provide support regarding management of above. Recommendations/Counseling Done: 1.Abdominal pain. Did confirm with Dr. Somers/Dr. Velasquez's office To initiate Carafate 1 g 4 times a day. Patient needing to take his Creon, multiple supplements, pain medications etc. This strategy reviewed regarding how best in the context of his limitations to be able to initiate this. His pantoprazole was doubled to twice daily as well. Patient has had some improvement of his baseline pain with MS Contin 15 mg 3 times daily. He has had decreased need for use of the breakthrough MS 15 mg IR half tab. Will continue to monitor, as patient may be able to titrate back and improve his feelings of lethargy. 2. Medication adherence patient brought in a fairly large bag of medications, we sorted through and prioritizing given the overwhelming number of medications he has been taking as well as supplements. These were divided, each reviewed and questions addressed. Patient feels at this point in time he will be better able to manage, did not want any kind of medication list or Mediset set up. But was able to verbalize back instructions on each medication reviewed. 3. Weight loss. Counseling regarding strategies to increase caloric intake, timing of eating, as well as addressed multiple questions. Patient has increased his Ensure intake, new goal is to increase to 3 times a day. 4. Insomnia. Patient was instructed to stop Benadryl, increase his melatonin to 3 mg at bedtime. Counseling regarding cognitive behavioral therapy and expectations regarding sleep in the context of his current condition, as well as management of fatigue. 5. Lower extremity edema. He has had some improvement with the furosemide, no increase in dizziness, blood pressure is holding. Patient will take at least every other day, current potassium at 3.8, given his pill burden, reviewed high potassium foods for supplementation at this point. He is only on a low dose. Instruction regarding titration of furosemide for maximizing benefit versus side effects. 6. Coccyx decub. Instructed to not use doughnut, Will obtain pressure relief cushion continue to implement pressure relief measures. Instructed to continue on with the cavil on barrier cream as well. 7. Advanced care planning. JULIANN ST and DPO a and place. Awaiting final information regarding patient's current status of his pancreatic cancer, counseling regarding anxiety and distress in this "twilight time". Will continue to provide anticipatory guidance and support with regular appointments. Time Spent: Time spent 75 minutes with thorough review of medications, counseling regarding symptom management, management of pain, and anticipatory guidance
== END 2018-03-01 14:07 | disposition home or self-care (01) ==
LOC: PC 14:06
PROVIDERS: ATTEND Nurse Practitioner Adult Health
DX: Z51.5 Encounter for palliative care (principal); R10.9 Unspecified abdominal pain; R63.4 Abnormal weight loss; G47.00 Insomnia, unspecified; R60.0 Localized edema; C25.0 Malignant neoplasm of head of pancreas; C79.89 Secondary malignant neoplasm of other specified sites; M62.81 Muscle weakness (generalized); Z79.82 Long term (current) use of aspirin; Z79.891 Long term (current) use of opiate analgesic; F32.9 Major depressive disorder, single episode, unspecified; F41.9 Anxiety disorder, unspecified; K59.03 Drug induced constipation; T40.2X5D Adverse effect of other opioids, subsequent encounter; K22.70 Barrett's esophagus without dysplasia; K29.70 Gastritis, unspecified, without bleeding; Z66 Do not resuscitate
CPT/HCPCS: 99215

== ENCOUNTER 2018-03-20 16:12 | Outpatient (CLI) | payer MEDICARE, OTHER ==
--- NOTE | 2018-03-20 18:22 | CONSULTATION NOTE ---
Palliative Care Follow Up - Referral Referring Provider: Dr. Surendra Fam Time of Visit: [id number] [place] [facility] [place] Reason: Acute on Chronic Pain/Pancreatic Cancer s/p Whipple - Information Sources Records reviewed: RN notes reviewed, Previous records reviewed History/Review of Systems obtained from: Patient, Family ( Rere present) Exam limitations: Clinical condition (patient with mild confusion) - History of Present Illness Update Brief HPI Update: This is an 82-year-old gentleman who is diagnosed with stage II pancreatic cancer at the head of the pancreas since 12/2016. He did receive a Whipple surgery 03/2017 at [facility], though is known for positive perineural invasion. He did receive single agent Xeloda, with severe side effects, including residual C difficile, since resolved. He continues to be quite frail, has severe anorexia, has severe ongoing abdominal pain, and has recently seen gastroenterology. Dr. Simeon Velasquez has added medications, including increasing his Protonix, adding Zantac 150 twice daily, as well as starting dicyclomine, he does not feel the severe pain has improved but may be the cramping with the dicyclomine at maximum therapeutic dose he had increased to two days ago. He continues to use the morphine 15 mg sustained release 3 times daily, reports is only lasting 6-7 hours, then he has excruciating escalating pain at 9 out of 10. He will then take the MS immediate release half to full tab about four times a day, he is with his multiple medications feeling somewhat overwhelmed, not able to take in adequate calories, and continued to decline both functionally, and does appear with some cognitive confusion today. He was complaining of symptoms of cystitis with mild burning, patient with history of mccain catheter for symptoms of retention and UTIs, unable to produce urine speciman at time of visit, will drop off tomorrow AM at [employer]. Social History - Living Situation Living arrangement: At home Living Situation: With spouse/s.o. ( Rere provides support and transportation to appointments, he will not allow her to participate in assisting with medications nor input into appointment despite his intermittent confusion. She shares this when he has left the room) Medications/Allergies - Medications Home Medications: Ambulatory Orders Medication Instructions Recorded Confirmed Aspirin [Adult Low Dose Aspirin EC] 100 mg PO DAILY 12/05/17 03/21/18 Finasteride [Proscar] 5 mg PO DAILY 12/05/17 03/20/18 Lipase/Protease/Amylase [Creon Dr 1 cap PO TIDWM 12/05/17 03/20/18 24,000 Units Capsule] Lisinopril 15 mg PO BID 12/05/17 03/20/18 Magnesium 250 mg PO DAILY 12/05/17 03/20/18 Mesalamine [Delzicol] 800 mg PO BID 12/05/17 03/20/18 Multivitamin [Multivitamins] 1 cap PO DAILY 12/05/17 03/20/18 [place]-3/Dha/Epa/Fish Oil [[place] 3 1 cap PO DAILY 12/05/17 03/20/18 500 Softgel] Pantoprazole [Protonix] 40 mg PO BID 12/05/17 03/20/18 Tamsulosin [Flomax] 0.4 mg PO DAILY 12/05/17 03/21/18 Megestrol Acetate 1 tbs PO BID 12/27/17 03/20/18 Morphine ER [Ms Contin] 15 mg PO Q8HR 01/23/18 03/20/18 Calcium Carb/Mag Hydrox/Simeth 1 tab PO Q4HR PRN 03/01/18 03/20/18 [Antacid Multi-Sym Tab Chew] Furosemide 20 mg PO .Q2 DAYS 03/01/18 03/20/18 Melatonin 3 mg PO ACHS 03/01/18 03/20/18 Morphine Sulfate 7.5 - 15 mg PO Q4HR PRN 03/01/18 03/20/18 Phenobarb/Hyoscy/Atropine/Scop 1 tab PO BID 03/20/18 03/20/18 [Belladonna-Phenobarbital Tab] Potassium Chloride 10 meq PO DAILY #10 tablet.er 03/21/18 Sulfamethox/Trimeth 800/160 1 each PO BID #14 tablet 03/21/18 [Bactrim Ds 800/160] - Allergies Allergies/Adverse Reactions: Allergies Allergy/AdvReac Type Severity Reaction Status Date / Time cephalexin [From Keflex] Allergy Cramps Verified 03/21/18 13:14 ondansetron Allergy Unknown Verified 12/27/17 10:02 [From Zofran (as hydrochloride)] Review of Systems - Constitutional Constitutional: reports: Fatigue, Malaise, Poor appetite, Weight loss - Eyes Eyes: reports: Vision loss - Ears, Nose & Throat Ears, Nose & Throat: reports: Hearing loss (mild), Hoarseness (has referal to ENT from Dr. Fam), Dry mouth - Cardiovascular Cardiovascular: reports: Exertional dyspnea, Other (has not bee taking b/p) - Respiratory Respiratory: reports: SOB with exertion - Gastrointestinal Gastrointestinal: reports: Reflux/heartburn (improved some), Poor appetite, Early satiety, Other (cramping with some improvement with dicyclomine). denies : Constipation - Genitourinary Genitourinary: reports: Dysuria (unclear if has had recent UA), Frequency, Incontinence (mild) - Musculoskeletal Musculoskeletal: reports: Stiffness, Muscle weakness, Assistive devices (uses walker; reports getting weaker) - Integumentary Integumentary: reports: Dryness - Neurological Neurological: reports: General weakness, Dizziness (just took IR MS about 30 minutes ago), Memory problems (confused about medication;) - Psychiatric Psychiatric: reports: Depression, Anxiety. denies: Suicidal - Endocrine Endocrine: reports: Intolerance to cold - Hematologic/Lymphatic Hematologic/Lymphatic: reports: Recurrent infections (UTIs) - All Other Systems All Other Systems: reports: Reviewed and negative Physical Exam - Vital Signs Temperature: 37.2 C Pulse Rate: 52 Respiratory Rate: 18 Blood Pressure: 143/64 - Physical Exam General Appearance: positive: Mild distress, Lethargic Eyes Bilateral: positive: Normal inspection ENT: positive: Dry mucous membranes Neck: positive: No JVD, Trachea midline Cardiovascular: positive: Regular rate & rhythm Respiratory: positive: No respiratory distress Skin: positive: Pallor, Other (sunken cheeks) Extremities: positive: No pedal edema, Other Neurologic/Psychiatric: positive: Oriented x3, Weakness, Depressed mood/affect Palliative Care - POLST Patient has POLST: Yes POLST Status: DNR, Selective Treatment Pain: Pain worsening Tiredness/Fatigue: Severe (7-10) Drowsiness/Sedation: Moderate (4-6) Nausea: None Depression: Moderate (4-6) Anxiety: Moderate (4-6) Dyspnea: Mild (1-3) Anorexia: Severe (7-10), Weight loss Sleep: Variable sleep pattern (up frequently at night to void) Constipation: Intermittent constipation Feelings of wellbeing/Perceived Quality of Life: Poor, Worsening Performance Status: Patient reports weak, sleeping most of the time "only time I am out of pain", dressed in multiple layers of clothes but tries to stay independent. Ambulation with FWW, limited because of activity intolerance. PPS 60%. - Palliative Care Discussion: Patient very discouraged at current quality of life, trying to keep up with calories, medication, and the degree of pain and suffering he perceives. Understands the scans did not show significant progression of disease, but feels he is getting worse and frustrated. Impression and Recommendations - Palliative Care Impression: This is an 82-year-old gentleman with stage II pancreatic cancer status post Whipple, now with a new diagnosis of Feliz's esophagus, and experiencing severe gastritis. Patient does continue to present with severe abdominal pain, continues to feel overwhelmed with managing his medication and nutrition, and presents with high symptom burden. Patient presents today with ongoing functional, and concern for cognitive decline. Palliative care to provide support regarding pain and symptom management and anticipatory guidance Recommendations/Counseling Done: 1. Cystitis. Patient with history of UTI/retention, sent with orders and UA cup. Patient without currently fever or chills, with history of C. diff, will confirm and treat. 2. Acute on chronic Pain. Cramping responding some to dicyclomine. Discussed at length patients perception of MS Contin 15 working only 6-7 hours, wants to change to every 6 hours. Counseling regarding 8 hour recommendation, next MS Contin 30 mg, would be every 12 hours, would like to take every 6 hours versus increase and do 12 hours though counseled would be easier to follow. Dicyclomine at 40 mg QID, some impact on cramping, agreed can take MS Contin 15 every 6 hours for total of 60 mg, but as pain lessens to return to q 8 hours with hope of medications working to decrease gastritis, will continue to use 1/2 -1 tab IR MS 15 mg if severe in between. Follow up with Dr. Velasquez's office regarding ALL the medications for GI, inst. to continue, is aware, carafate only needed for one month, will extend prescription for two more weeks. 3. LE edema improved. Using furosemide every few days. 4. Weight loss. Continuing with Megace, though concerned not helping. Counseling reviewed again about nutritional intake, very little caloric intake, only taking one Ensure despite counseling otherwise to take at least 3 if not eating. Reports early satiety, tries to encourage patient regarding intake , reviewed need for fiber as well. 5. Advanced care planning. Patient remains discouraged at continued functional decline and poor quality of life. Time Spent: 50 minutes with greater than 50% spent in counseling regarding pain and symptom management, review of medications, and anticipatory guidance.
== END 2018-03-20 16:13 | disposition home or self-care (01) ==
LOC: PC 16:12
PROVIDERS: ATTEND Nurse Practitioner Adult Health
DX: Z51.5 Encounter for palliative care (principal); N30.90 Cystitis, unspecified without hematuria; G89.29 Other chronic pain; R10.9 Unspecified abdominal pain; R60.0 Localized edema; R63.4 Abnormal weight loss; C25.9 Malignant neoplasm of pancreas, unspecified; Z96.0 Presence of urogenital implants; Z79.82 Long term (current) use of aspirin; Z79.891 Long term (current) use of opiate analgesic; M62.81 Muscle weakness (generalized); F32.9 Major depressive disorder, single episode, unspecified; F41.9 Anxiety disorder, unspecified; K22.70 Barrett's esophagus without dysplasia; K29.70 Gastritis, unspecified, without bleeding; Z66 Do not resuscitate
CPT/HCPCS: 99215

== ENCOUNTER 2018-03-21 08:00 | Outpatient (CLI) | payer MEDICARE, OTHER ==
[2018-03-21 19:25] LABS: BILIRUBIN,URINE NEGATIVE (NEGATIVE); GLUCOSE, URINE (UA) NEGATIVE (NEGATIVE); KETONES,URINE (UA) NEGATIVE (NEGATIVE); LEUKOCYTE ESTERASE, URINE LARGE (NEGATIVE); NITRITE,URINE POSITIVE (NEGATIVE); OCCULT BLOOD,URINE NEGATIVE (NEGATIVE); PROTEIN,URINE 30 mg/dL (NEGATIVE); UROBILINOGEN,URINE 0.2 (NORMAL) E.U./dL (NORMAL)
[2018-03-21 19:52] LABS: CLARITY,URINE HAZY (CLEAR); RBC,URINE 0-5 /HPF (0-5); WBC CLUMPS,URINE PRESENT
[2018-03-21 19:53] LABS: BACTERIA,URINE Many /HPF (None Seen); SQUAMOUS EPITHELIAL CELL,UR NONE SEEN (<= Few)
== END 2018-03-21 08:01 | disposition home or self-care (01) ==
LOC: LAB.R 08:00
PROVIDERS: ATTEND Nurse Practitioner Adult Health
DX: R30.0 Dysuria (principal)
CPT/HCPCS: 81001; 87086

== ENCOUNTER 2018-03-21 12:35 | Outpatient (CLI) | payer MEDICARE, OTHER | END 2018-03-21 12:36 | disposition critical access hospital (66) | LOC: EMS 12:35 | PROVIDERS: ATTEND Surgery | DX: R42 Dizziness and giddiness (principal); R25.9 Unspecified abnormal involuntary movements | CPT/HCPCS: A0425; A0429 ==

== ENCOUNTER 2018-03-21 13:00 | Emergency (ER) | payer MEDICARE, OTHER ==
--- NOTE | 2018-03-21 14:27 | ED Physician Documentation ---
PD HPI SYNCOPE - Stated complaint Stated Complaint: DIZZY, POSSIBLE SEIZURE - Chief complaint Chief Complaint: General - History obtained from History obtained from: Patient, Caregiver - History of Present Illness Witnessed: Witnessed (at his medical providers office.) Timing - onset: Today (he was dropping off urine specimen as he had had dysuria for couple days. While there, he felt lightheaded when he stood up from chair. Reportedly got pale, fainted, and then had tremoring movement for a minute. Awoke and providers then EMS noted him to have low BP which improved enroute with IV fluids. He denies feeling lightheaded now on arrival.) Preceding symptoms: Light headed, Other (dysuria). No: Headache, Vision changes , Abdominal pain, Nausea / vomiting Associated symptoms: No: Headache, Chest pain, Nausea / vomiting, Abdominal pain Contributing factors: Decreased PO intake, Just stood up. No: Recent med change , Noxious stimulae Injury occurred: No: Fell, Head injury, Neck injury, Bit tongue Similar symptoms before: Has not had sx before Recently seen: Not recently seen Review of Systems Constitutional: denies: Fever, Chills, Myalgias Nose: denies: Rhinorrhea / runny nose, Congestion Throat: denies: Sore throat Cardiac: denies: Chest pain / pressure, Palpitations Respiratory: denies: Dyspnea, Cough GI: denies: Abdominal Pain, Abdominal Swelling, Nausea, Vomiting, Diarrhea : reports: Dysuria (for few days), Frequency Skin: denies: Rash, Lesions Musculoskeletal: denies: Neck pain, Back pain Neurologic: reports: Generalized weakness, Syncope. denies: Focal weakness, Numbness, Altered mental status, Headache Psychiatric: denies: Depressed, Anxiety Endocrine: denies: Weight loss Immunocompromised: denies: Immunocompromised PD PAST MEDICAL HISTORY - Past Medical History Cardiovascular: Hypertension Respiratory: None Neuro: None Endocrine/Autoimmune: None GI: C.difficile, Diverticulitis, Ulcerative colitis : Benign prostate hypertrophy, Other HEENT: Chronic hearing loss Psych: Depression, Anxiety Musculoskeletal: Osteoarthritis Derm: None - Past Surgical History Past Surgical History: Yes - Present Medications Home Medications: Ambulatory Orders Medication Instructions Recorded Confirmed Aspirin [Adult Low Dose Aspirin EC] 100 mg PO DAILY 12/05/17 03/21/18 Finasteride [Proscar] 5 mg PO DAILY 12/05/17 03/20/18 Lipase/Protease/Amylase [Creon Dr 1 cap PO TIDWM 12/05/17 03/20/18 24,000 Units Capsule] Lisinopril 15 mg PO BID 12/05/17 03/20/18 Magnesium 250 mg PO DAILY 12/05/17 03/20/18 Mesalamine [Delzicol] 800 mg PO BID 12/05/17 03/20/18 Multivitamin [Multivitamins] 1 cap PO DAILY 12/05/17 03/20/18 [place]-3/Dha/Epa/Fish Oil [[place] 3 1 cap PO DAILY 12/05/17 03/20/18 500 Softgel] Pantoprazole [Protonix] 40 mg PO BID 12/05/17 03/20/18 Tamsulosin [Flomax] 0.4 mg PO DAILY 12/05/17 03/21/18 Megestrol Acetate 1 tbs PO BID 12/27/17 03/20/18 Morphine ER [Ms Contin] 15 mg PO Q8HR 01/23/18 03/20/18 Calcium Carb/Mag Hydrox/Simeth 1 tab PO Q4HR PRN 03/01/18 03/20/18 [Antacid Multi-Sym Tab Chew] Furosemide 20 mg PO .Q2 DAYS 03/01/18 03/20/18 Melatonin 3 mg PO ACHS 03/01/18 03/20/18 Morphine Sulfate 7.5 - 15 mg PO Q4HR PRN 03/01/18 03/20/18 Phenobarb/Hyoscy/Atropine/Scop 1 tab PO BID 03/20/18 03/20/18 [Belladonna-Phenobarbital Tab] Potassium Chloride 10 meq PO DAILY #10 tablet.er 03/21/18 Sulfamethox/Trimeth 800/160 1 each PO BID #14 tablet 03/21/18 [Bactrim Ds 800/160] - Allergies Allergies/Adverse Reactions: Allergies Allergy/AdvReac Type Severity Reaction Status Date / Time cephalexin [From Keflex] Allergy Cramps Verified 03/21/18 13:14 ondansetron Allergy Unknown Verified 12/27/17 10:02 [From Zofran (as hydrochloride)] - Social History Does the pt smoke?: No Smoking Status: Never smoker Does the pt drink ETOH?: No Does the pt have substance abuse?: No - Family History Family history: reports: Non contributory - Immunizations Immunizations are current?: Yes - POLST Patient has POLST: Yes PD ED PE NORMAL - Vitals Vital signs reviewed: Yes - General General: Alert and oriented X 3, No acute distress, Well developed/nourished - HEENT HEENT: Atraumatic, Pharynx benign, Dentition benign (and no tongue lesions) - Neck Neck: Supple, no meningeal sign, No adenopathy, No JVD, No bruit - Cardiac Cardiac: RRR, No murmur - Respiratory Respiratory: Clear bilaterally - Abdomen Abdomen: Soft, Non tender - Back Back: No CVA TTP - Derm Derm: Normal color, Warm and dry - Extremities Extremities: No deformity, No tenderness to palpate, Normal ROM s pain, No edema , No calf tenderness / cord - Neuro Neuro: Alert and oriented X 3, No motor deficit, Normal speech Eye Opening: Spontaneous Motor: Obeys Commands Verbal: Oriented GCS Score: 15 - Psych Psych: Normal mood, Normal affect Results - Vitals Vitals: Vital Signs - 24 hr 03/21/18 03/21/18 03/21/18 13:10 16:06 16:07 Temperature 36.4 C L Heart Rate 62 63 58 L Respiratory 22 20 19 Rate Blood Pressure 113/57 L 160/62 H 160/62 H O2 Saturation 100 100 100 03/21/18 16:23 Temperature Heart Rate 65 Respiratory 18 Rate Blood Pressure 160/62 H O2 Saturation 97 Oxygen O2 Source Room air - Labs Labs: Laboratory Tests 03/21/18 03/21/18 03/21/18 14:20 15:32 15:32 WBC 9.1 RBC 3.79 L Hgb 11.9 L Hct 34.4 L MCV 90.8 MCH 31.5 H MCHC 34.7 RDW 14.4 Plt Count 249 MPV 7.2 L Neut # 7.8 H Lymph # 0.6 L [place] # 0.6 Eos # 0.0 Baso # 0.0 Absolute Nucleated RBC 0.00 Nucleated RBC % 0.0 Sodium Potassium Chloride Carbon Dioxide Anion Gap BUN Creatinine Estimated GFR (MDRD) Glucose Lactic Acid 1.2 Calcium Total Bilirubin AST ALT Alkaline Phosphatase Total Protein Albumin Globulin Albumin/Globulin Ratio Lipase Urine Color LT. YELLOW Urine Clarity HAZY Urine pH 6.5 Ur Specific [place] <=1.005 Urine Protein NEGATIVE Urine Glucose (UA) NEGATIVE Urine Ketones NEGATIVE Urine Occult Blood NEGATIVE Urine Nitrite POSITIVE H Urine Bilirubin NEGATIVE Urine Urobilinogen 0.2 (NORMAL) Ur Leukocyte Esterase MODERATE H Urine RBC 0-5 Urine WBC >25 H Urine WBC Clumps PRESENT Ur Squamous Epith Cells NONE SEEN Urine Bacteria Many H Ur Microscopic Review INDICATED Urine Culture Comments INDICATED 03/21/18 15:32 WBC RBC Hgb Hct MCV MCH MCHC RDW Plt Count MPV Neut # Lymph # [place] # Eos # Baso # Absolute Nucleated RBC Nucleated RBC % Sodium 132 L Potassium 3.1 L Chloride 99 L Carbon Dioxide 27 Anion Gap 6.0 BUN 13 Creatinine 0.4 L Estimated GFR (MDRD) 207 Glucose 114 H Lactic Acid Calcium 8.0 L Total Bilirubin 0.7 AST 26 ALT 47 Alkaline Phosphatase 44 Total Protein 6.0 L Albumin 3.3 Globulin 2.7 Albumin/Globulin Ratio 1.2 Lipase 12 L Urine Color Urine Clarity Urine pH Ur Specific [place] Urine Protein Urine Glucose (UA) Urine Ketones Urine Occult Blood Urine Nitrite Urine Bilirubin Urine Urobilinogen Ur Leukocyte Esterase Urine RBC Urine WBC Urine WBC Clumps Ur Squamous Epith Cells Urine Bacteria Ur Microscopic Review Urine Culture Comments PD MEDICAL DECISION MAKING - ED course Complexity details: reviewed results, considered differential (he is doing well here. Has prior history of pancreatic cancer, in remission, and had fainting episode. ot CT head to ensure no mets/masses/leeding. This was okay. Regarding syncope, evaluated heart/rhythm, labs, and signs of infection. There is UTI, but does not seem septic. ), d/w patient Departure - Departure Disposition: 01 Home, Self Care Clinical Impression: Hypokalemia UTI (urinary tract infection) Qualifiers: Urinary tract infection type: acute cystitis Hematuria presence: without hematuria Qualified Code(s): N30.00 - Acute cystitis without hematuria Episode of syncope Qualifiers: Syncope type: unspecified Qualified Code(s): R55 - Syncope and collapse Condition: Stable Record reviewed to determine appropriate education?: Yes Instructions: ED Fainting Unkn Cause, ED UTI Cystitis Male Follow-Up: Jese Armas MD [Primary Care Provider] - Prescriptions: Potassium Chloride 10 meq PO DAILY #10 tablet.er Sulfamethox/Trimeth 800/160 [Bactrim Ds 800/160] 1 each PO BID #14 tablet Comments: Drink lots of fluids. You do have a bladder infection and so take Bactrim twice daily for a week for that. Your potassium is a little bit low so take a potassium supplement for the next 10 days. Think your episode you had today was a fainting spell and does not sound like seizure as much. It probably relates to the infection but you do not look septic. We can have you treated at home and see how you do over the next couple of days. Return if feeling worse, lightheaded, fevers, vomiting, other concerns. Discharge Date/Time: 03/21/18 16:46
[2018-03-21] MEDS ORDERED: SODIUM CHLORIDE 0.9% 1,000 ML IV ONE (14:41)
[2018-03-21 14:51] LABS: BILIRUBIN,URINE NEGATIVE (NEGATIVE); GLUCOSE, URINE (UA) NEGATIVE (NEGATIVE); KETONES,URINE (UA) NEGATIVE (NEGATIVE); LEUKOCYTE ESTERASE, URINE MODERATE (NEGATIVE); NITRITE,URINE POSITIVE (NEGATIVE); OCCULT BLOOD,URINE NEGATIVE (NEGATIVE); PH,URINE 6.5 PH (5.0-7.5); PROTEIN,URINE NEGATIVE (NEGATIVE); UROBILINOGEN,URINE 0.2 (NORMAL) E.U./dL (NORMAL)
[2018-03-21 14:52] LABS: CLARITY,URINE HAZY (CLEAR)
[2018-03-21] MEDS ORDERED: SULFAMETH/TRIMETH DS 800/160 MG TABLET PO STA (15:05)
[2018-03-21 15:30] LABS: BACTERIA,URINE Many /HPF (None Seen); RBC,URINE 0-5 /HPF (0-5); SQUAMOUS EPITHELIAL CELL,UR NONE SEEN (<= Few); WBC CLUMPS,URINE PRESENT
--- NOTE | 2018-03-21 15:36 | CT Preliminary Report ---
Exam: CT HEAD W/O IMPRESSION: 1. 4.0 x 3.5 cm arachnoid cyst left middle cranial fossa, incidental finding. 2. No acute intracranial abnormality nor bleed. [facility] SITE ID: [id number]
[2018-03-21 15:41] LABS: BASOPHILS % (AUTO) 0.3 %; EOSINOPHILS % (AUTO) 0.5 %; HGB - HEMOGLOBIN 11.9 g/dL (14.0-18.0); LYMPHOCYTES # (AUTO) 0.6 10^3/uL (1.5-3.5); LYMPHOCYTES % (AUTO) 6.9 %; MEAN CORPUSCULAR HEMOGLOBIN 31.5 pg (27.0-31.0); MEAN CORPUSCULAR HGB CONC 34.7 g/dL (32.0-36.0); MEAN CORPUSCULAR VOLUME 90.8 fL (80.0-94.0); MEAN PLATELET VOLUME 7.2 fL (7.4-11.4); MONOCYTES # (AUTO) 0.6 10^3/uL (0.0-1.0); MONOCYTES % (AUTO) 6.5 %; NEUTROPHILS # (AUTO) 7.8 10^3/uL (1.5-6.6); NEUTROPHILS % (AUTO) 85.8 %; PLT - PLATELET COUNT 249 10^3/uL (130-450); RED BLOOD COUNT 3.79 10^6/uL (4.70-6.10); RED CELL DISTRIBUTION WIDTH 14.4 % (12.0-15.0); WHITE BLOOD COUNT 9.1 x10^3/uL (4.8-10.8)
--- NOTE | 2018-03-21 15:42 | CT Report ---
EXAM: CT HEAD WITHOUT CONTRAST EXAM DATE: 03/21/2018 03:11 PM. CLINICAL HISTORY: Syncope/seizure this morning. No prior seizure activity. COMPARISON: None. TECHNIQUE: Multiaxial CT images were obtained from the foramen magnum to the vertex. Reformats: Coron al. IV contrast: None. In accordance with CT protocol optimization, one or more of the following dose reduction techniques w ere utilized for this exam: automated exposure control, adjustment of mA and/or KV based on patient s ize, or use of iterative reconstructive technique. FINDINGS: Parenchyma: 4.0 x 3.5 cm uniform CSF density lesion anteriormost aspect of the left middle cranial fossa without remodeling nor erosion of the adjacent bone. This causes mild mass effect on the left temporal lobe. No intraparenchymal hemorrhage. No evidence of solid mass, midline shift, or CT findings of acute inf arction. Arauz-white differentiation is distinct. Diffuse chronic microangiopathic white matter change s are evident. Extraaxial Spaces: Normal for age. No subdural or epidural collections identified. Ventricles: The ventricles and cortical sulci are enlarged, consistent with age-related tissue loss. Sinuses and orbits: Imaged paranasal sinuses, orbits, and mastoids show no significant abnormality. Bones: No evidence of fracture or calvarial defect. Other: None. IMPRESSION: 1. 4.0 x 3.5 cm arachnoid cyst left middle cranial fossa, incidental finding. 2. No acute intracranial abnormality nor bleed. [facility] Referring Provider Line: [phone] SITE ID: [id number]
[2018-03-21 15:53] LABS: ALBUMIN 3.3 g/dL (3.2-5.5); ALBUMIN/GLOBULIN RATIO 1.2 (1.0-2.2); BILIRUBIN,TOTAL 0.7 mg/dL (0.2-1.0); CREATININE 0.4 mg/dL (0.6-1.2)
[2018-03-21 16:07] VITALS: BP 160/62
[2018-03-21] MEDS ORDERED: POTASSIUM BICARB 25 MEQ TABLET PO STA (16:13)
== END 2018-03-21 16:46 | disposition home or self-care (01) ==
LOC: EDUNIT# → ED 13:00
DX: E87.6 Hypokalemia (principal); N30.00 Acute cystitis without hematuria; R55 Syncope and collapse; I10 Essential (primary) hypertension
CPT/HCPCS: 36415; 70450; 80053; 81001; 83605; 83690; 85025; 87086; 93005; 96360; 99284; A9270; 81003; 87077

== ENCOUNTER 2018-04-07 15:03 | Outpatient (CLI) | payer MEDICARE, OTHER ==
--- NOTE | 2018-04-07 17:47 | CONSULTATION NOTE ---
Palliative Care Follow Up - Referral Referring Provider: Dr. Surendra Fam Time of Visit: [id number] Referral setting: [facility] [place] Reason: Pancreatic Cancer/Pain management - Information Sources Records reviewed: Previous records reviewed History/Review of Systems obtained from: Patient, Family ( present for visit ) Exam limitations: Clinical condition (patient more confused and perseverated today) - History of Present Illness Update Brief HPI Update: This is an 82-year-old gentleman with stage II head the pancreas cancer since 2016. 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 Did receive single agent Xeloda chemotherapy, unfortunately was unable to tolerate this was discontinued, did develop profound diarrhea along with C. difficile. Patient's recent MRI did not show progression of disease, but his CA-19 has continue to creep up, now at 167. Patient has struggled with ongoing urinary retention, frequent UTIs, ongoing weight loss, and significant gastric pain. He has been seen by gastroenterology, with multiple medications and attempt to address his pain. Most recently had an ED visit, they called 911 when he had dropped off a urine specimen at [facility], he got dizzy and shakey. He was found to have a urinary tract infection, he is reporting after completing antibiotics today he is having some increased dysuria. Patient remains somewhat befuddled and overwhelmed by his medication regimen. He was on MS Contin 15 mg 3 times daily , insisted that this was not adequate and has been using between 3-4 times a day , so his primary care who in attempt to help him simplify his medication regimen put him on 30 mg twice daily patient remains quite resistant to any changes, though we did discuss the rationale and encouraged him to trial this for increased simplicity and most likely better coverage. He is profoundly depressed, does not see any quality of life and his current level of functioning , does perseverate on medications. He is perception is he is eating somewhat better, his confirms is eating more and not necessarily better. Palliative care attempting to provide support in this complex situation given patient's strong need to control and poor memory. Social History - Living Situation Living arrangement: At home Living Situation: With spouse/s.o. (fairly isolated/has two sons) Medications/Allergies - Medications Home Medications: Ambulatory Orders Medication Instructions Recorded Confirmed Aspirin [Adult Low Dose Aspirin EC] 100 mg PO DAILY 12/05/17 04/07/18 Finasteride [Proscar] 5 mg PO DAILY 12/05/17 04/07/18 Lipase/Protease/Amylase [Creon Dr 1 cap PO TIDWM 12/05/17 04/07/18 24,000 Units Capsule] Lisinopril 15 mg PO BID 12/05/17 04/07/18 Magnesium 250 mg PO DAILY 12/05/17 04/07/18 Mesalamine [Delzicol] 800 mg PO BID 12/05/17 04/07/18 Multivitamin [Multivitamins] 1 cap PO DAILY 12/05/17 04/07/18 [place]-3/Dha/Epa/Fish Oil [[place] 3 1 cap PO DAILY 12/05/17 04/07/18 500 Softgel] Pantoprazole [Protonix] 40 mg PO BID 12/05/17 04/07/18 Tamsulosin [Flomax] 0.4 mg PO DAILY 12/05/17 04/07/18 Megestrol Acetate 1 tbs PO DAILY 12/27/17 04/07/18 Morphine ER [Ms Contin] 30 mg PO BID 01/23/18 04/07/18 Calcium Carb/Mag Hydrox/Simeth 1 tab PO Q4HR PRN 03/01/18 04/07/18 [Antacid Multi-Sym Tab Chew] Furosemide 20 mg PO PRN PRN 03/01/18 04/07/18 Melatonin 3 mg PO ACHS 03/01/18 04/07/18 Morphine Sulfate 7.5 - 15 mg PO Q4HR PRN 03/01/18 04/07/18 Dicyclomine [Bentyl] 20 mg PO TID PRN 04/07/18 04/07/18 Sucralfate [Carafate] 1 gm PO TID 04/07/18 04/07/18 - Allergies Allergies/Adverse Reactions: Allergies Allergy/AdvReac Type Severity Reaction Status Date / Time cephalexin [From Keflex] Allergy Cramps Verified 03/21/18 13:14 ondansetron Allergy Unknown Verified 12/27/17 10:02 [From Zofran (as hydrochloride)] Review of Systems - Constitutional Constitutional: reports: Fatigue, Poor appetite, Weight stable (126.5) - Eyes Eyes: reports: Vision loss - Ears, Nose & Throat Ears, Nose & Throat: reports: Hearing loss (mild) - Cardiovascular Cardiovascular: reports: Edema (improved; using furosemide occasionally), Lightheadedness, Decr. exercise tolerance - Respiratory Respiratory: reports: SOB at rest, SOB with exertion. denies: Cough - Gastrointestinal Gastrointestinal: reports: Constipation, Reflux/heartburn, Bloating, Early satiety - Genitourinary Genitourinary: reports: Dysuria (treated for UTI/beginning to feel burning again ), Frequency, Incontinence - Musculoskeletal Musculoskeletal: reports: Muscle aches, Stiffness, Muscle weakness, Assistive devices (uses front wheeled walker) - Integumentary Integumentary: reports: Dryness, Other (decub stage II on coccyx) - Neurological Neurological: reports: General weakness, Memory problems - Psychiatric Psychiatric: reports: Depression (feeling overwhelmed by the poor quality of life) - Endocrine Endocrine: reports: Intolerance to cold - Hematologic/Lymphatic Hematologic/Lymphatic: reports: Recurrent infections (utis) - All Other Systems All Other Systems: reports: Reviewed and negative Physical Exam - Vital Signs Pulse Rate: 56 Respiratory Rate: 16 Blood Pressure: 118/63 - Physical Exam General Appearance: positive: Moderate distress, Anxious, Cachetic Eyes Bilateral: positive: Normal inspection ENT: positive: Dry mucous membranes Neck: positive: No JVD, Trachea midline Cardiovascular: positive: Regular rate & rhythm Respiratory: positive: Breath sounds nml Abdomen: positive: Non-tender, Soft Skin: positive: Pallor, Dryness, Pressure wound (filling in; dry < 0.5 cm base at left of coccyx; not red or painful) Extremities: positive: Pedal edema (left greater than right 1+) Neurologic/Psychiatric: positive: Disoriented to time, Weakness, Depressed mood/ affect, Flat affect, Other (more difficulty following conversation; tracking inst. and understanding medications) Palliative Care - POLST Patient has POLST: Yes POLST Status: DNR, Selective Treatment Pain: Pain unchanged, Location (mid abdominal/worsens with "hunger" and in AM; taking MS contin 15 mg every 6-8 hours with IR 15 mg 2-3 xs a day per report) Tiredness/Fatigue: Severe (7-10) Drowsiness/Sedation: Moderate (4-6) Nausea: Mild (1-3) Depression: Severe (7-10) Anxiety: Moderate (4-6) Dyspnea: Moderate (4-6) Anorexia: Moderate (4-6) (perceives doing better), Weight loss Sleep: Variable sleep pattern Constipation: Yes, Opoid induced, Intermittent constipation Feelings of wellbeing/Perceived Quality of Life: Poor, Worsening Performance Status: Patient very cachectic in appearance, does have a shuffling walk and uses 4 wheeled walker to ambulate. Is very slow, unclear if has had falls very evasive regarding questions. Reports spends a great amount of time sleeping. - Palliative Care Discussion: Patient very befuddled to conversation today, reports to take a pain pill prior to coming in. Difficulty tracking, though his does report increased confusion for a couple days now. Reports an appearance is much more perseverative. When asked about his quality of life and depression. Patient reports it is not worth living at this point in time, and feels very depressed, withdrawn, does not want to interact with friends or family. His regimen of pills, trying to eat, and keep track of everything is overwhelming to him. He does not accept assistance from his , and indeed is very irritable when she had all times then. Patient feels very conflicted, he feels like he is deteriorating, though his understanding is his cancer is not causing his problems. He has very little help her galina in his life. Discussed benefits of an antidepressant, but am hesitant to add yet another pill to his overwhelming regimen and adding to his confusion Results - Lab Results Lab results reviewed: Yes Impression and Recommendations - Palliative Care Impression: This is an 82-year-old gentleman with pancreatic cancer, with ongoing pain and discomfort most likely is a sequela of his Whipple procedure, and possibly progressive disease. He is on a multiple medication regimen, unclear if anything is helping her providing support, patient's perception is the morphine is most effective in relieving his distress. Continues to have both functional , and cognitive decline, as well as appears quite cachectic. Patient also presents with severe depression. Palliative care providing support for pain and symptom management as patient allows Recommendations/Counseling Done: 1. Dysuria. Patient will obtained urine specimen for follow-up, patient does have history of recurrent UTIs attributed most likely to retention and depressed immune system. Patient has been off his antibiotics for almost 2 weeks, beginning to be symptomatic. Unclear if this is adding to his cognitive issues today. 2. Hypokalemia. Patient was given a short course of potassium at ED on 5 8. Patient has since completed, he is no longer taking the furosemide, will check and see if he needs to continue. 3. Abdominal pain. Will refill patient's Carafate 1 g 3 times daily, did review medication changes Dr. Velasquez made at visit 03/30. Reviewed with patient unclear if patient following appropriately, is easily flustered and overwhelmed today. Counseling done regarding rationale for changing to MS Contin 30 mg twice daily, is willing to give it a try after much conversation and reinforcement. Had presented patient with an alternative, would recommend actually patient most likely would benefit from fentanyl equal analgesic would be 25 mcg patch. Patient quite resistant to changes, but will consider. 4. Constipation. Patient continues to be sporadic and his follow through on his bowel program. Reports bowels did move yesterday, but they are not moving on a daily basis. Again recommended consistency with his senna 1-2 tabs twice daily. 5. Anorexia. Patient does perceive he is eating better, he does feel "hungry" but is unable to interpret this as pain or hunger. Unclear if the Meg[facility] is providing him in any support. He has decreased to 1 time a day. 6. Medication adherence. Patient is having difficulty tracking medications, does have multiple list with multiple instructions from multiple providers. Attempted to collate this the patient quite resistant. We will continue see the patient on a regular basis and attempt to provide support and simplify schedule. 7. Depression. Patient is feeling hopeless and an overwhelming sense of distress regarding his poor quality of life. Given patient's slight cognitive confusion today, did not do well deepened this as time was spent again trying to reconcile medications and make clear his pain medications. Time Spent: 75 minutes was given 50% of this done in counseling coordination of care arranging for labs and UA, counseling regarding opioid safety and instruction and medication adherence
== END 2018-04-07 15:04 | disposition home or self-care (01) ==
LOC: PC 15:03
PROVIDERS: ATTEND Nurse Practitioner Adult Health
DX: Z12.5 Encounter for screening for malignant neoplasm of prostate (principal); R30.0 Dysuria; R10.9 Unspecified abdominal pain; K59.03 Drug induced constipation; T40.2X5D Adverse effect of other opioids, subsequent encounter; Z79.891 Long term (current) use of opiate analgesic; R63.0 Anorexia; F32.9 Major depressive disorder, single episode, unspecified; C25.0 Malignant neoplasm of head of pancreas; Z87.440 Personal history of urinary (tract) infections; M62.81 Muscle weakness (generalized); F41.9 Anxiety disorder, unspecified; Z66 Do not resuscitate
CPT/HCPCS: 99215

== ENCOUNTER 2018-04-07 16:56 | Outpatient (CLI) | payer MEDICARE, OTHER ==
[2018-04-07 17:22] LABS: CALCIUM 8.2 mg/dL (8.5-10.3); CREATININE 0.5 mg/dL (0.6-1.2)
[2018-04-07 17:29] LABS: BILIRUBIN,URINE NEGATIVE (NEGATIVE); GLUCOSE, URINE (UA) NEGATIVE (NEGATIVE); KETONES,URINE (UA) NEGATIVE (NEGATIVE); LEUKOCYTE ESTERASE, URINE MODERATE (NEGATIVE); NITRITE,URINE POSITIVE (NEGATIVE); OCCULT BLOOD,URINE SMALL (NEGATIVE); PROTEIN,URINE NEGATIVE (NEGATIVE); UROBILINOGEN,URINE 0.2 (NORMAL) E.U./dL (NORMAL)
[2018-04-07 17:36] LABS: CLARITY,URINE CLEAR (CLEAR)
[2018-04-07 18:00] LABS: WBC CLUMPS,URINE PRESENT
[2018-04-07 18:01] LABS: AMORPHOUS SEDIMENT,UR Rare /LPF; BACTERIA,URINE Many /HPF (None Seen); SQUAMOUS EPITHELIAL CELL,UR RARE Squamous (<= Few)
== END 2018-04-07 16:57 | disposition home or self-care (01) ==
LOC: LAB 16:56
PROVIDERS: ATTEND Nurse Practitioner Adult Health
DX: R30.0 Dysuria (principal)
CPT/HCPCS: 36415; 80048; 81001; 81003

== ENCOUNTER 2018-04-19 17:11 | Outpatient (CLI) | payer MEDICARE, OTHER ==
--- NOTE | 2018-04-19 17:50 | CONSULTATION NOTE ---
Palliative Care Follow Up - Referral Referring Provider: Dr. Surendra Fam Time of Visit: 7124-5488 Referral setting: Home Referral Reason: Pancreatic Cancer/Goals of Care - Information Sources Records reviewed: Previous records reviewed History/Review of Systems obtained from: Patient, Family (Rere ) Exam limitations: Clinical condition (patient with some confusion and STM issues ) - History of Present Illness Update Brief HPI Update: This is an 82-year-old gentleman with stage II pancreatic cancer since 12/2016. Patient has had a Whipple procedure on 03/2017 which was noted to be positive for neural invasion. His CA 19 is continue to creep up, now 167. His recent MRI did not show progression of disease, but he is having significant sequela to bili today. He has had unrelenting progressive pain, increasing weight loss and cachexia, generalized weakness and muscle loss, as well as now presenting with nausea and vomiting and concern for some obstructive symptoms. Patient has had functional and cognitive decline, this is why I am seeing him at home. He is profoundly depressed, does not see any quality of life is in his current level of functioning, denies suicidality but is feeling quite overwhelmed. His other presenting symptoms that has progressed fairly significantly is his hoarseness, he feels like he is having difficulty swallowing that there is something at the base of his throat, and is complicated by his nausea and vomiting. He was positive last time for UTI, has been treated with antibiotics , has completed this. He reports he is "eating around the edges", is managing to stay hydrated, though is quite miserable overall. On arrival he reports he is done with taking all his medications, but in follow-up he has been taking most of them, he does not want to go "any more medical appointments", but then wants to follow-up with the ENT, and unwilling to give up any of his current appointments. I did introduce the concept of hospice if patient wants a comfort focused approach, this had been in conjuction after speaking to his oncologist Dr. Fam, prior to appointment. Social History - Living Situation Living arrangement: At home Living Situation: With spouse/s.o. (Rere his , very much wants to be of support, but patient is quite controlling though he does admit he is losing control, she does recognize this decline. She is trying to give him his autonomy but does want him to be more comfortable and understands that he is working against himself doing his own medication management) Medications/Allergies - Medications Home Medications: Ambulatory Orders Medication Instructions Recorded Confirmed Aspirin [Adult Low Dose Aspirin EC] 100 mg PO DAILY 12/05/17 04/19/18 Finasteride [Proscar] 5 mg PO DAILY 12/05/17 04/19/18 Lipase/Protease/Amylase [Moises Dr 1 cap PO TIDWM 12/05/17 04/19/18 24,000 Units Capsule] Lisinopril 15 mg PO BID PRN MDD greater than 12/05/17 04/19/18 120/70 Magnesium 250 mg PO DAILY 12/05/17 04/19/18 Mesalamine [Delzicol] 800 mg PO BID 12/05/17 04/19/18 Multivitamin [Multivitamins] 1 cap PO DAILY 12/05/17 04/19/18 Wiggins-3/Dha/Epa/Fish Oil [Wiggins 3 1 cap PO DAILY 12/05/17 04/19/18 500 Softgel] Pantoprazole [Protonix] 40 mg PO BID 12/05/17 04/19/18 Tamsulosin [Flomax] 0.4 mg PO DAILY 12/05/17 04/19/18 Megestrol Acetate 1 tbs PO DAILY 12/27/17 04/19/18 Morphine ER [Ms Contin] 30 mg PO BID 01/23/18 04/19/18 Calcium Carb/Mag Hydrox/Simeth 1 tab PO Q4HR PRN 03/01/18 04/19/18 [Antacid Multi-Sym Tab Chew] Furosemide 20 mg PO PRN PRN 03/01/18 04/19/18 Melatonin 3 mg PO ACHS 03/01/18 04/19/18 Morphine Sulfate 7.5 - 15 mg PO Q4HR PRN 03/01/18 04/19/18 Dicyclomine [Bentyl] 40 mg PO TID PRN 04/07/18 04/19/18 Sucralfate [Carafate] 1 gm PO TID 04/07/18 04/19/18 LORazepam [Ativan] 0.25 - 0.5 mg PO ACHS PRN 04/19/18 04/19/18 Metoclopramide HCl 5 mg PO TID PRN 04/19/18 04/19/18 Prochlorperazine Supp [Compazine 25 mg LA BID PRN 04/19/18 04/19/18 Supp] - Allergies Allergies/Adverse Reactions: Allergies Allergy/AdvReac Type Severity Reaction Status Date / Time cephalexin [From Keflex] Allergy Cramps Verified 03/21/18 13:14 ondansetron Allergy Unknown Verified 12/27/17 10:02 [From Zofran (as hydrochloride)] Review of Systems - Constitutional Constitutional: reports: Fatigue, Poor appetite, Weight loss - Eyes Eyes: reports: Vision loss, Corrective lenses - Ears, Nose & Throat Ears, Nose & Throat: reports: Hearing loss, Hoarseness (worsening), Dry mouth, Other (reports increase difficulty with swallowing) - Cardiovascular Cardiovascular: reports: Lightheadedness, Exertional dyspnea, Decr. exercise tolerance - Respiratory Respiratory: reports: SOB at rest, SOB with exertion, Other (looses breath with talking) - Gastrointestinal Gastrointestinal: reports: Constipation, Nausea, Vomiting (reports about one week now; "eating around the edges"; vomiting turns into dry heaves), Bloating ( severe gas pressure), Poor appetite, Early satiety - Genitourinary Genitourinary: reports: Frequency, Incontinence. denies: Dysuria - Musculoskeletal Musculoskeletal: reports: Muscle aches, Stiffness, Limited range of motion, Muscle weakness, Assistive devices (uses walker to get around) - Integumentary Integumentary: reports: Dryness - Neurological Neurological: reports: General weakness, Memory problems, Incoordination - Psychiatric Psychiatric: reports: Depression, Anxiety - Endocrine Endocrine: reports: Intolerance to cold - Hematologic/Lymphatic Hematologic/Lymphatic: reports: Recurrent infections (utis) - All Other Systems All Other Systems: reports: Reviewed and negative Physical Exam - Vital Signs Temperature: 97.3 C Pulse Rate: 59 Respiratory Rate: 18 O2 Saturation: 95 (ra @ rest) Blood Pressure: 122/58 - Physical Exam General Appearance: positive: Moderate distress, Cachetic Eyes Bilateral: positive: Normal inspection ENT: positive: Other (thickened coating on tongue; no s/s candidiasis; no erythema noted back of throat; muscle mass loss in neck area) Neck: positive: Trachea midline Cardiovascular: positive: Regular rate & rhythm Respiratory: positive: Diminished in bases. negative: Wheezes, Rales, Rhonchi Abdomen: positive: Abnml bowel sounds (hypoactive), Other (despite c/o abdominal pain; non tender on exam; did not have n/v during visit). negative: Non-tender, Guarding, Distended Skin: positive: Pallor, Dryness, Pressure wound (coccyx) Extremities: positive: Pedal edema (mild left greater than right), Other (noted more difficulty getting sitting to standing) Neurologic/Psychiatric: positive: Weakness, Depressed mood/affect, Flat affect, Other (does have fluctuating confusion throughout visit; perseverating behaviors ; easily distressed) Palliative Care - POLST Patient has POLST: Yes POLST Status: DNR, Selective Treatment Pain: Location (Patient continues complaining of severe pain, had him change medications to MS Contin 30 mg twice daily, does appear he is taking about 4-6 1 /2 tabs of 15 mg IR MS; He is very vague and difficult to track regarding what is happening with his pain management. His perception is the MS Contin wears off about 8-10 hours, he is also working with his other GI meds to address his discomfort, reports he gave him all up but in review has been taking them intermittently. Does admit to confusion and ability to track, whether he is taking them or not, has been resistant up to this point in time and having Rere help. Pain is deep abdominal pain; sharp shooting; cramping and now with addition of intermittent dry heaves; does feel MS helps) Tiredness/Fatigue: Severe (7-10) Drowsiness/Sedation: Moderate (4-6) Nausea: Moderate (4-6), With vomiting Depression: Severe (7-10) Anxiety: Moderate (4-6) Dyspnea: Moderate (4-6) Sleep: Variable sleep pattern (Very distressed at not being able to sleep at night, discussed what was interfering with sleep. Does appear to be anxiety as well as up frequently to void. Patient's perception if he could "just get a good night sleep "the next day because so much better, feeling very distressed knowing willing to give him any medication to "knock him out". Has found the melatonin not to be effective.) Constipation: Yes, Opoid induced, Intermittent constipation (last BM 6/ taking LD/Senna daily) Feelings of wellbeing/Perceived Quality of Life: Poor, Worsening Performance Status: Patient with poor activity tolerance, is able to ambulate around home with 4 wheeled walker. Taking frequent rest, trying to be up during the day, though does fall asleep quite easily in his recliner. Currently has been able to manage his ADLs, patient very resistant and independent for further assistance - Palliative Care Discussion: On arrival to the home, patient very agitated. Patient reports "I do not want to be here". That he needs "a psychiatrist". that he is given up taking all his pills, (but in review really has not). Patient reports increased distress with new symptom of nausea and vomiting, reports initiated about a week ago, reports is only been able to "eat around the edges", does get dry heaves. Is feeling quite overwhelmed, he has had functional and cognitive decline, does admit to increased confusion though it does clear. Reports he is tired of going to medical appointments, he does understand the seriousness of his illness, but does not feel like anything is helping and he is just waiting. Patient admits the greater problem is his "loss of control" given his declining status and intermittent confusion. Reviewed current symptoms status, and medications, and ongoing frustrations. Discussed patient does have other options, including focusing on comfort, though the majority of his symptoms are attributed to the sequela of the Whipple , and having a care team support him in home, counseling regarding the role of hospice. After much lengthy discussion, patient short-term goals are to see that ENT, allowing Rere to help with medications, and to address current uncontrolled symptoms. Patient is willing to consider possibly transition to hospice in the future, but is resistant at this visit further explore this more urgently Results - Lab Results Lab results reviewed: Yes Impression and Recommendations - Palliative Care Impression: This is an 82-year-old gentleman with pancreatic cancer, who presents with a failure to thrive. He has ongoing functional and cognitive decline, continues to struggle with medication adherence, and now presents today with increased nausea and vomiting. Patient does appear much more cachectic, has severe depression, and would most likely benefit from support of the hospice team. Palliative care to provide support for pain and symptom management as patient allows. Recommendations/Counseling Done: 1.Abdominal pain. This is multifactorial in origin, most likely as a result of his sequela of his Whipple, concern for disease progression as well. Patient is only been using his abdominal meds intermittently, he does perceive the dicyclomine as helpful for cramping, he does perceive the Gas-X is helpful for gas pains, he does admit to being unclear and consistent with his morphine intake. I again introduced my recommendation for putting him on a fentanyl patch, despite multiple explanations patient is not willing to move forward with this. Particularly in light of his nausea and vomiting and concern about him getting adequate pain management. When tease through in the end, patient's MS Contin 30 mg twice daily and his breakthrough pain medication are probably at a good level, patient does not needs to be adherent in taking it. 2. Nausea and vomiting. Unclear if this is related to his recent antibiotic use, or if patient having some increased signs or symptoms of obstruction. His abdomen is soft, nontender, nondistended. Will go ahead and initiate metoclopramide 5 mg 3 times daily, did provide prochlorperazine 25 mg suppositories if unable to take pills, and reviewed this with both and patient. 3. Constipation. Patient continues to be sporadic on his follow-through with his bowel program, he reports he is taking his senna and softener daily, recommended he increase this to twice a day. Last BM 04/17. 5. Dysphagia. Patient has had long-term hoarseness, this has increased significantly over the last week, patient does report some difficulty with swallowing, but feels he "has a lump in his throat. Is distressed ENT appointment not until 05/10. Agreed would call and see if could move this up. This does seem important to patient as far as being able to move forward. Patient does not have any signs or symptoms of candidiasis which was my initial concern, as he is just finished antibiotics. 6. Anorexia. Concern for patient's risk for dehydration, has been able to get 4-5 glasses of fluid and, reviewed signs and symptoms, offered to have IV infusion patient declined. Discussed if patient unable to get on top of nausea and vomiting, may need further workup and consider ED visit. Patient is getting tired of multiple appointments and medical intervention. 7. Medication adherence. Patient continues have difficulty tracking medication , is more than willing to assist. Patient did agree that she could provide assistance, written out list and instructions were reviewed with both patient and . Patient remains painstakingly perseverating about these issues, is admits to having difficulty with losing control. 8. Depression. Patient does have a persistent sense of hopelessness and distressed regarding his poor quality of life. We did discuss weighing benefits and burdens of moving forward with the antidepressant, given his current confusion and medication changes already today will hold off. Patient' s biggest concern is sleep, if he felt he had a "good night sleep" he feels his depression would improve. Patient denies suicidality "it's against my mormon" , would see though as a relief from his current condition. 9. Insomnia. Counseling regarding concern adding further medication to increase fall risk at night, will add secondary to his high anxiety and anxiety half of 0.5 mg lorazepam to see if this will assist, may also help with nausea. 10. Advanced care planning. Discussed at length and introducing the concept of hospice and focus on comfort, patient was very distressed regarding current quality of life, does recognize he is declining, patient does not want to prolong his suffering but unclear if he is willing to transition at this point in time Time Spent: 90 minutes with greater than 50% of this done in counseling, review of medications, addressing pain and symptom management, and anticipatory guidance.
== END 2018-04-19 17:12 | disposition home or self-care (01) ==
LOC: PC 17:11
PROVIDERS: ATTEND Nurse Practitioner Adult Health
DX: Z51.5 Encounter for palliative care (principal); R10.9 Unspecified abdominal pain; R11.2 Nausea with vomiting, unspecified; R13.10 Dysphagia, unspecified; R63.0 Anorexia; F32.9 Major depressive disorder, single episode, unspecified; G47.00 Insomnia, unspecified; C25.9 Malignant neoplasm of pancreas, unspecified; M62.81 Muscle weakness (generalized); F41.9 Anxiety disorder, unspecified; K59.03 Drug induced constipation; T40.2X5D Adverse effect of other opioids, subsequent encounter; Z79.891 Long term (current) use of opiate analgesic; Z91.14 Patient's other noncompliance with medication regimen; Z66 Do not resuscitate
CPT/HCPCS: 99350

== ENCOUNTER 2018-05-01 16:11 | Outpatient (CLI) | payer MEDICARE, OTHER ==
--- NOTE | 2018-05-01 16:14 | CONSULTATION NOTE ---
Palliative Care Follow Up - Referral Referring Provider: Dr. Surendra Fam Time of Visit: 5031-9056 Referral setting: Home (Is a taxing considerable effort for the patient leave the home secondary to his pain, he does have intermittent confusion, and poor activity tolerance. It is also help facilitate medication adherence and family meeting) Referral Reason: Pancreatic Cancer/Abdominal Pain/Constipation - Information Sources Records reviewed: Previous records reviewed History/Review of Systems obtained from: Patient, Family ( Rere present for visit) Exam limitations: Clinical condition (patient easily confused and overwhelmed; difficulty tracking those is better this visit) - History of Present Illness Update Brief HPI Update: This is an 82-year-old gentleman with stage II pancreatic cancer since 12/2016. 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 His CA19 is continued to creep up, last taken is now 167. He continues to have profound weight loss, difficulty with eating, poor hydration status, pain that is moderately controlled, and now recently treated again for a UTI secondary to severe dysuria. His nausea and vomiting has resolved, I suspect they had more to do with his pending UTI. He is still awaiting follow- up with the ENT, his hoarseness is worsening, he has difficulty swallowing. Patient does not perceive his quality of life is worth living, but remains resistant to transition to hospice, continues to want to follow-up with his providers. Will continue to work on pain and symptom management with palliative care support Social History - Living Situation Living arrangement: At home Living Situation: With spouse/s.o. Support System: Patient had agreed last week for Rere to help with medications, patient continues to want to keep control, and did not allow assistance. Patient remains very fragile, both are fairly isolated as far as outside support. Medications/Allergies - Medications Home Medications: Ambulatory Orders Medication Instructions Recorded Confirmed Aspirin [Adult Low Dose Aspirin EC] 100 mg PO DAILY 12/05/17 05/01/18 Finasteride [Proscar] 5 mg PO DAILY 12/05/17 05/01/18 Lipase/Protease/Amylase [[place] 1 cap PO TIDWM 12/05/17 05/01/18 24,000 Units Capsule] Magnesium 250 mg PO DAILY 12/05/17 05/01/18 Mesalamine [Delzicol] 800 mg PO BID 12/05/17 05/01/18 Multivitamin [Multivitamins] 1 cap PO DAILY 12/05/17 05/01/18 [place]-3/Dha/Epa/Fish Oil [[place] 3 1 cap PO DAILY 12/05/17 05/01/18 500 Softgel] Pantoprazole [Protonix] 40 mg PO BID 12/05/17 05/01/18 Tamsulosin [Flomax] 0.4 mg PO DAILY 12/05/17 05/01/18 Megestrol Acetate 1 tbs PO DAILY 12/27/17 05/01/18 Morphine ER [Ms Contin] 30 mg PO BID 01/23/18 05/01/18 Calcium Carb/Mag Hydrox/Simeth 1 tab PO Q4HR PRN 03/01/18 05/01/18 [Antacid Multi-Sym Tab Chew] Furosemide 20 mg PO PRN PRN 03/01/18 05/01/18 Melatonin 3 mg PO ACHS 03/01/18 05/01/18 Morphine Sulfate 7.5 - 15 mg PO Q4HR PRN 03/01/18 05/01/18 Dicyclomine [Bentyl] 40 mg PO TID PRN 04/07/18 05/01/18 Sucralfate [Carafate] 1 gm PO TID 04/07/18 05/01/18 LORazepam [Ativan] 0.25 - 0.5 mg PO QPM PRN 04/19/18 05/01/18 Metoclopramide HCl 5 mg PO TID PRN 04/19/18 05/01/18 Prochlorperazine Supp [Compazine 25 mg SC BID PRN 04/19/18 05/01/18 Supp] Saccharomyces Boulardii [Florastor] 250 mg PO BID MDD 24 days 05/01/18 05/01/18 Simethicone [Gas Relief] 180 mg PO Q4HR PRN 05/01/18 05/01/18 Sulfamethox/Trimeth 800/160 1 tab PO BID MDD 10 days 05/01/18 05/01/18 [Bactrim Ds] - Allergies Allergies/Adverse Reactions: Allergies Allergy/AdvReac Type Severity Reaction Status Date / Time cephalexin [From Keflex] Allergy Cramps Verified 03/21/18 13:14 ondansetron Allergy Unknown Verified 12/27/17 10:02 [From Zofran (as hydrochloride)] Review of Systems - Constitutional Constitutional: reports: Fatigue, Weakness, Poor appetite, Weight loss (114 at MD office last Tuesday) - Eyes Eyes: reports: Vision loss, Corrective lenses - Ears, Nose & Throat Ears, Nose & Throat: reports: Hearing loss, Hoarseness (worsening), Dental decay , Dry mouth, Other (increase difficulty swallowing) - Cardiovascular Cardiovascular: reports: Lightheadedness, Exertional dyspnea, Decr. exercise tolerance - Respiratory Respiratory: reports: SOB with exertion. denies: Cough, SOB at rest - Gastrointestinal Gastrointestinal: reports: Abdominal pain (had let constipation go greater than 4-5 days; resulting in abd. pain and discomfort; is NOT titrating Senna as inst. ), Nausea (resolved last several days), Poor appetite, Early satiety - Genitourinary Genitourinary: reports: Dysuria (dysuria improved with AB), Frequency, Other ( does feel emptying bladder has hx of retention) - Musculoskeletal Musculoskeletal: reports: Back pain, Stiffness, Muscle weakness, Assistive devices (uses 4WW to ambulate; walks around house to maintain strength) - Integumentary Integumentary: reports: Dryness, Other (coccyx healed; thin and pink per ; still using barrier cream and pressure relief) - Neurological Neurological: reports: General weakness, Memory problems (fluctuating; seems more clear today but admits to intermittent confusion) - Psychiatric Psychiatric: reports: Depression (improved with improved sleep), Anxiety - Endocrine Endocrine: reports: Intolerance to cold - Hematologic/Lymphatic Hematologic/Lymphatic: reports: Recurrent infections (utis) - All Other Systems All Other Systems: reports: Reviewed and negative Physical Exam - Vital Signs Temperature: 98.7 C Pulse Rate: 57 Respiratory Rate: 18 O2 Saturation: 97 (ra @ rest) Blood Pressure: 102/52 - Physical Exam General Appearance: positive: Mild distress, Cachetic Eyes Bilateral: positive: Normal inspection, Other (sunken eyes/cheek bones) ENT: positive: Other (poor dentition; no s/s candidiasis) Neck: positive: No JVD, Trachea midline Cardiovascular: positive: Irregular Respiratory: positive: Breath sounds nml Abdomen: positive: Soft, Abnml bowel sounds (diminished), Tenderness, Other ( abdomen concave; no s/s obstruction) Skin: positive: Pallor, Dryness, Bruising, Pressure wound (resolving on coccyx) Extremities: positive: Pedal edema (pitting dough edema 3+ up to mid calf; sits with feet dependent) Neurologic/Psychiatric: positive: Mood/affect nml, Disoriented to time, Slurred/ abnml speech (voice very weak; difficult to understand; raspy) Palliative Care - POLST Patient has POLST: Yes POLST Status: DNR, Selective Treatment Pain: Pain unchanged, Location (Patient on MS Contin 30 mg twice daily, appears he is taking anywhere between 3-5 tablets of the 15 mg through the day to manage his pain. He still has severe sharp shooting abdominal pains, but also build from a dull ache to a severe ache, he also has difficulty with cramping, he reports he is using the dicyclomine about twice a day. And able to track just how adherent he is being to all his all medications, again the etiology remains somewhat suspicious to his neural invasion of his pancreatic cancer) Tiredness/Fatigue: Moderate (4-6) Drowsiness/Sedation: Mild (1-3) Nausea: Mild (1-3) Depression: Mild (1-3) Anxiety: Moderate (4-6) Dyspnea: Mild (1-3) Anorexia: Severe (7-10), Weight loss Sleep: Sleep improved, Variable sleep pattern Constipation: Yes, Opoid induced, Unmanaged (patient has been inst. on bowel program multiple times; with poor follow through) Feelings of wellbeing/Perceived Quality of Life: Poor, Worsening Performance Status: Patient is quite weak and cachectic, he can get from sitting to standing independently, he is bathing with just set up from his . He does ambulate around the house, he does find going to doctor's appointments quite overwhelming and fatiguing. I would put him at a PPS of 60% - Palliative Care Discussion: Patient does feel his depression is better now that he is sleeping better through the night, he does again feel overwhelmed by the burden of his illness and his pain. His does recognize the fragility of the situation, he is very cachectic and I expect will continue to deteriorate. Have conferred with his oncologist, he would be appropriate to transition to hospice given his ongoing functional decline and weight loss. Will explore this yet again after he meets with the ENT as this seems to be an important visit to him. Impression and Recommendations - Palliative Care Impression: This is an 82-year-old gentleman with pancreatic cancer who continues to present as failure to thrive, with increased weight loss, decreased functional and cognitive status, and continued difficulty with pain management. He continues to struggle with medication adherence, his nausea and vomiting though has resolved, reports his depression is better, but still remains with high symptom burden. He now presents with uncontrolled constipation. Palliative care to continue to try and support him for pain and symptom management as patient allows until transition to hospice Recommendations/Counseling Done: 1. Abdominal pain. This is multifactorial in origin, most likely as result of the sequela of his Whipple, as well as concern for disease progression and neural invasion. Patient has not been fairly consistent with his abdominal medications, he is getting most of his relief from morphine. Again medication adherence is a concern, he had set it up for his to help him last meeting, but he remains very resistant and wanting to stay and control. 2. Nausea and vomiting. This is resolved. He did use metoclopramide with good results, has not recurred, I suspect it had to do with his pending UTI. 3 UTI. He is currently on the Bactrim 1 tab twice daily for 10 days, Florastor 250 mg twice daily, is tolerating this fairly well with decrease in symptoms. Patient does not feel he is retaining, just that it did not clear last time. Reviewed my concern about repeated antibiotics as he has had C. difficile in the past. Instructed next time will need a UA, had called last minute and was fairly clear about symptomology. 4. Constipation. Patient has not followed through at any point on titration instructions. Has been instructed to take senna 3 tabs twice daily, did not quit stopping it, again reiterated on long-term opioids needs to take adequate amounts daily. Again counseling done regarding bowel program including his . 5. Dysphagia. Patient was unable to get earlier ENT appointment, did send note and request. Patient has long-term hoarseness, does seem much more weak and raspy today, continues to have trouble swallowing and feels he has "a lump in his throat". Will follow up after his ENT appointment. 6. Anorexia. Patient continues to most likely be dehydrated, has continuous weight loss, is eating less than his caloric needs. His nausea and vomiting is stopped, but continues at high risk with his cachexia and continued loss of muscle mass. 7. Medication adherence. Patient continues have difficulty tracking medication , remains willing to assist. Though we had in agreement she would assist last week, he has not allowed her to do this. Reviewed this again though I am not sure he will allow it. 8. Depression. Patient does feel with his sleep improved he is doing somewhat better. Is not feeling so hopeless, he is tracking a little bit better. 9. Insomnia. Patient does feel like the Lorazepam 0.5 mg half dose is "the miracle", it is helping him with his sleep and he is feeling better there remains quite fatigued. Time Spent: 60 minutes with greater than 50% of this done in counseling, regarding pain and constipation management, anticipatory guidance. Will revisit hospice after he has seen Dr. Cast and outcome of this appointment. Has follow up with Dr. Velasquez 05/30 but doesn't see oncologist or PCP until July.
== END 2018-05-01 16:12 | disposition home or self-care (01) ==
LOC: PC 16:11
PROVIDERS: ATTEND Nurse Practitioner Adult Health
DX: Z51.5 Encounter for palliative care (principal); R10.9 Unspecified abdominal pain; N39.0 Urinary tract infection, site not specified; K59.03 Drug induced constipation; T40.2X5D Adverse effect of other opioids, subsequent encounter; R13.10 Dysphagia, unspecified; R63.0 Anorexia; Z91.14 Patient's other noncompliance with medication regimen; F32.9 Major depressive disorder, single episode, unspecified; G47.00 Insomnia, unspecified; C25.9 Malignant neoplasm of pancreas, unspecified; R62.7 Adult failure to thrive; Z79.82 Long term (current) use of aspirin; Z79.891 Long term (current) use of opiate analgesic; Z66 Do not resuscitate
CPT/HCPCS: 99350

== ENCOUNTER 2018-05-11 17:53 | Outpatient (CLI) | payer MEDICARE, OTHER ==
--- NOTE | 2018-05-11 19:58 | CONSULTATION NOTE ---
Palliative Care Follow Up - Referral Referring Provider: Dr. Surendra Fam Time of Visit: [id number] Referral setting: Home (It is a taxing and considerable effort for the patient to leave the home due to weakness and pain) Referral Reason: Pancreatic Cancer/Weight loss - Information Sources Records reviewed: Previous records reviewed History/Review of Systems obtained from: Patient, Family (Rere his was present) Exam limitations: Clinical condition (patient with intermittent confusion; alert and orientated for visit today) - History of Present Illness Update Brief HPI Update: This is an 82-year-old gentleman who continues to present as failure to thrive. He was diagnosed with stage II pancreas cancer 12/2016. He did undergo a Whipple procedure 03/2017, at that point was noted to have positive neural invasion. He did receive adjuvant single agent Xeloda chemotherapy from 06/2017 to 09/2017. He has significant toxicities with this, and also developed resistant C. difficile colitis, with a weight loss at that point in time of 85 pounds. He was last treated with Vanco in 11/2017. His most significant issues have continued to be abdominal pain, and the sequela of GI effects from his Whipple. 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 It has been difficult for him as the oncologist had shared the latest MRI did not show any progression of disease, but he does perceive himself as deteriorating and dying. His other baseline history is he has BPH, Ulcerative colitis, HTN, and chronic hearing loss. He has continued to have ongoing functional decline, progressive abdominal pain , and intermittent UTIs. Today he weighs in at 114, this is a 10 pound weight loss over the last month, and he does have fairly significant lower extremity edema. He is very cachetic. Prior to his diagnosis a couple years ago he was greater than 200 pounds. He has struggled with eating, fluctuating cognitive status, intermittent difficulty with swallowing, and abdominal pain. He perceives his quality of life is quite poor, and is quite ready to be done with this. I had introduced hospice prior to this, the patient had wanted to follow through on a ENT appointment, but had canceled this week for a variety of reasons. He does have hoarseness, his this by she had though is improved Social History - Living Situation Living arrangement: At home Living Situation: With spouse/s.o. Support System: He lives with his Rere, They have been for 37 years. He has a son from a previous marriage in [place], they have a son in [place] whom visits regularly. He retired in 1994, he came to [facility] in 1989 and worked in the [employer]. There are fairly isolated, and did not appear to have much social support.Patient tends to want to be in control, his does defer allows him as much as possible given his current fluctuating cognitive status. He has been allowing her though to help with his pill Medications/Allergies - Medications Home Medications: Ambulatory Orders Medication Instructions Recorded Confirmed Aspirin [Adult Low Dose Aspirin EC] 100 mg PO DAILY 12/05/17 05/11/18 Finasteride [Proscar] 5 mg PO DAILY 12/05/17 05/11/18 Lipase/Protease/Amylase [Creon Dr 1 cap PO TIDWM 12/05/17 05/11/18 24,000 Units Capsule] Mesalamine [Delzicol] 800 mg PO BID 12/05/17 05/11/18 Pantoprazole [Protonix] 40 mg PO BID 12/05/17 05/11/18 Tamsulosin [Flomax] 0.4 mg PO DAILY 12/05/17 05/11/18 Morphine ER [Ms Contin] 30 mg PO BID 01/23/18 05/11/18 Calcium Carb/Mag Hydrox/Simeth 1 tab PO Q4HR PRN 03/01/18 05/11/18 [Antacid Multi-Sym Tab Chew] Furosemide 20 mg PO PRN PRN 03/01/18 05/11/18 Morphine Sulfate 15 mg PO Q3HR PRN 03/01/18 05/11/18 Dicyclomine [Bentyl] 40 mg PO TID PRN 04/07/18 05/11/18 Sucralfate [Carafate] 1 gm PO TID 04/07/18 05/11/18 LORazepam [Ativan] 0.25 - 0.5 mg PO QPM PRN 04/19/18 05/11/18 Metoclopramide HCl 5 mg PO TID PRN 04/19/18 05/11/18 Prochlorperazine Supp [Compazine 25 mg OK BID PRN 04/19/18 05/11/18 Supp] Saccharomyces Boulardii [Florastor] 250 mg PO BID MDD 24 days 05/01/18 05/11/18 Simethicone [Gas Relief] 180 mg PO Q4HR PRN 05/01/18 05/11/18 Sulfamethox/Trimeth 800/160 1 tab PO BID MDD 4 days left 05/01/18 05/11/18 [Bactrim Ds] Potassium Chloride [Micro-K] 10 meq PO DAILY 05/11/18 05/11/18 - Allergies Allergies/Adverse Reactions: Allergies Allergy/AdvReac Type Severity Reaction Status Date / Time cephalexin [From Keflex] Allergy Cramps Verified 03/21/18 13:14 ondansetron Allergy Unknown Verified 12/27/17 10:02 [From Zofran (as hydrochloride)] Review of Systems - Constitutional Constitutional: reports: Fatigue, Weakness, Poor appetite, Weight loss (weight 114) - Ears, Nose & Throat Ears, Nose & Throat: reports: Hearing loss (mild), Dental decay (has appointment Tuesday with dentist bad tooth; "doesn't want to with a toothache"), Dental pain, Dry mouth - Cardiovascular Cardiovascular: reports: Edema, Decr. exercise tolerance. denies: Chest pain - Respiratory Respiratory: reports: SOB with exertion. denies: SOB at rest - Gastrointestinal Gastrointestinal: reports: Abdominal pain (cramping and gas pains), Constipation (senna 6 tabs daily; increase pain and with bowel movement every 2- 3 days), Nausea (resolved/better), Poor appetite, Early satiety - Genitourinary Genitourinary: reports: Dysuria (intermittent; did not finish AB in 10 days 4 days left to go), Frequency - Musculoskeletal Musculoskeletal: reports: Muscle weakness, Assistive devices (uses 4WW) - Integumentary Integumentary: reports: Other (eschar on right of buttocks) - Neurological Neurological: reports: General weakness, Memory problems (fluctuating cognitive status;) - Psychiatric Psychiatric: reports: Depression, Anxiety - Endocrine Endocrine: reports: Intolerance to cold - Hematologic/Lymphatic Hematologic/Lymphatic: reports: Recurrent infections (UTIs) - All Other Systems All Other Systems: reports: Reviewed and negative Physical Exam - Vital Signs Temperature: 98.7 C Pulse Rate: 65 Respiratory Rate: 18 O2 Saturation: 95 (ra @ rest) Blood Pressure: 92/54 - Physical Exam General Appearance: positive: No acute distress, Alert Eyes Bilateral: positive: Normal inspection ENT: positive: Dry mucous membranes, Other (voice hoarse) Neck: positive: No JVD, Trachea midline Cardiovascular: positive: Regular rate & rhythm Respiratory: positive: Diminished throughout Abdomen: positive: Other (concave; decreased BT) Skin: positive: Dryness, Pressure wound (3 small scabbed areas left coccyx ; thinned coccyx) Extremities: positive: Pedal edema (pitting edema about half way up; improved from baseline) Neurologic/Psychiatric: positive: Oriented x3, Mood/affect nml, Weakness Palliative Care - POLST Patient has POLST: Yes POLST Status: DNR, Comfort Measures (Redid POLST) Pain: Pain worsening, Location (Patient currently on MS Contin 30 mg twice daily , he does have immediate release morphine 15 mg tabs, he is using anywhere from 2-5 a day. He does get relief with this, he also has a component of pain that is cramping and spasmodic, he is using the dicyclomine 40 mg 2-3 times a day with relief as well. He still perceives that Sucralfate Helps with his burning as well. He is sleeping better with the Lorazepam at bedtime, and despite his significant levels of pain and discomfort he does feel his current regimen has improved his pain management and does not want any changes) Tiredness/Fatigue: Severe (7-10) (Patient reports he sleeps probably about 12 hours, he is frequently fatigued, does spend most of his time in the recliner or bed, and ambulates just short distances around the home) Drowsiness/Sedation: Moderate (4-6) Nausea: Mild (1-3) (has resolved; using metoclopramide intermittently with relief) Depression: Moderate (4-6) Anxiety: Moderate (4-6) Dyspnea: Mild (1-3) Anorexia: Severe (7-10), Weight loss Sleep: Sleep improved Constipation: Yes, Opoid induced, Unmanaged (continues to struggle with constipation; currently reports taking (has been inconsistent) 6-8 tabs of senna and a softener, going every 3-4 days with signficant distress) Feelings of wellbeing/Perceived Quality of Life: Poor, Worsening Performance Status: Patient does ambulate around the home with a 4 wheeled walker. He is having increased difficulty getting from sitting to standing, his poor activity tolerance. Has shower with glass doors, unclear if he is actually been able to bathe this last couple weeks. He states mostly in his nightgown and probe. I would put him at a PPS of 50% - Palliative Care Discussion: Patient reports he is just absolutely tired, he does not perceive himself as far as his quality of life as living, that he is just existing for another day. It has been difficult as he is had ongoing failure to thrive, weight loss, progressive pain, but has told he is cancer was "stable". His tumor marker though is positive, and in follow up with oncologist, most likely does have progressive disease, but also the sequela of his Whipple. We discussed in the context of his goals of care, as he is quite clear today. He is really quite "done", he does perceive himself as dying, and feels overwhelmed that even the thought of leaving for more doctor's appointments. Reintroduced hospice, counseling regarding the team and support, does feel this alliance with his goals at this point in time. Patient has a deep Jehovah'S Witness talia, he wears his rosary and his dependent. He is not afraid of dying. He dislikes being a burden on his , though he can be quite irritable to her. We did spend some time just acknowledging the difficulty of losing once independence and control. We updated his JULIANN ST to reflect his goals for focus on comfort only, and no further hospitalization. Impression and Recommendations - Palliative Care Impression: This is an 82-year-old gentleman with pancreatic cancer, who presents with high symptom burden of pain, anorexia, cachexia, fatigue, anxiety, and depression. Given his continued failure to thrive, his poor quality of life, his goals to focus on comfort and allowing natural , we will transition him to hospice. Recommendations/Counseling Done: 1. 1. Constipation. As best I can tell, patient titrated up to 6-8 tabs of senna daily, still having significant issues, have been instructed to add MiraLAX 1 capful twice daily. Again counseling regarding goal is to have a soft regular p.m. daily, as this is added to his discomfort. 2. Dysphagia. Patient does have long-term hoarseness, reports his swallowing has improved somewhat. Was feeling overwhelmed and did not keep his ENT appointment, at this point does not feel like this is going to be of help for him. Today he is attributing it to postnasal drip, instructed to trial Flonase 1 spray each nostril daily to see if he gets some relief. 3. Anorexia. Patient continues to have weight loss, did weigh today at 114, he does have most likely several pounds of lower extremity edema with fluid. This is about a 10 pound weight loss just over the last 4-5 weeks. He is quite thin and cachectic. He continues to struggle with eating and hydration, in the context of our conversation today and goals, encouraged just to eat for comfort and to let go of some of the anxiety and distress regarding his focus on this. 4. Abdominal pain. This is multifactorial in origin, most likely as a result of the sequela of his Whipple and concern for disease progression with his neural invasion. His has been helping him with his medications, he still finds relief in his current regimen, will continue. 5. UTI. Patient has not been consistent in taking his Bactrim, he still has 8 tabs he should have finished quite a while ago, instructed given his intermittent dysuria to finish the course. He has not had any progression in fever or chills just intermittent pain. Most likely though also attributed to concentrated urine and he has dehydration. Patient does not feel like he is retaining though he has had a history in the past. 6. Depression. Patient is doing somewhat better with his improved sleep, he still does feel like his quality of life is not worth living at this point in time. He is quite bright today, and has told several jokes, I believe he is feeling somewhat relieved to be able to just have her permission to let go. 7. Advanced care planning. After a lengthy conversation, patient will proceed with hospice, most likely would benefit from a hospital bed given his cachexia, and multiple bony prominences over his spine and coccyx. He will consider it. Counseling done regarding hospice, hospice team, and the benefit. We did JULIANN ST , instructed to keep on the fridge. Updated Dr. Fam the oncologist, feels this is quite appropriate and referral made to [facility] hospice Time Spent: 75 minutes with greater than 50% of this done in counseling regarding symptom management, goals of care, anticipatory guidance and coordination of care with hospice.
== END 2018-05-11 17:54 | disposition home or self-care (01) ==
LOC: PC 17:53
PROVIDERS: ATTEND Nurse Practitioner Adult Health
DX: Z51.5 Encounter for palliative care (principal); K59.03 Drug induced constipation; T40.2X5D Adverse effect of other opioids, subsequent encounter; R13.10 Dysphagia, unspecified; R63.0 Anorexia; R10.9 Unspecified abdominal pain; N39.0 Urinary tract infection, site not specified; F32.9 Major depressive disorder, single episode, unspecified; R62.7 Adult failure to thrive; C25.9 Malignant neoplasm of pancreas, unspecified; Z79.82 Long term (current) use of aspirin; Z79.891 Long term (current) use of opiate analgesic; R63.4 Abnormal weight loss; M62.81 Muscle weakness (generalized); F41.9 Anxiety disorder, unspecified; Z66 Do not resuscitate
CPT/HCPCS: 99350